=== PATIENT | female | born 1960 | race Caucasian/White ===

== ENCOUNTER 2017-06-26 11:57 | Emergency (ER) | payer SELFPAY ==
[2017-06-26 14:44] LABS: #Basophils 0.1 thou/uL (0.0-0.2); #Eosinphils 0.1 thou/uL (0.0-0.7); #Lymphocytes 3.7 thou/uL (1.20-3.40); #Monocytes 0.6 thou/uL (0.11-0.59); %Basophils 0.6 % (0.0-1.0); %Eosinophils 1.2 % (0.0-10.0); %Monocytes 6.5 % (0.0-10.0); %Neutrophils 52.8 % (42.0-75.0); Hemoglobin 17.5 g/dL (12.0-16.0); Mean Corpuscular HGB CONC 33.1 g/dL (32.0-36.0); Mean Corpuscular Hemoglobin 32.2 pg (27.0-31.0); Mean Corpuscular Volume 97.5 fl (81.0-99.0); Mean Platelet Volume 6.7 fL (7.4-10.4); Platelet Count 285 thou/uL (130-400); RBC Distribution Width 11.9 % (11.5-14.5); Red Blood Cell (RBC) Count 5.43 mill/uL (4.20-5.40); White Blood Cell (WBC) Count 9.4 thou/uL (4.8-10.8)
[2017-06-26 14:58] LABS: Anion Gap 12 mmol/L (10-20); BUN (Urea Nitrogen) 8 mg/dL (9.8-20.1); Calc. Creatinine Clearance 0 mL/min (70-130); Calcium 10.1 mg/dL (7.8-10.44); Carbon Dioxide 26 mmol/L (22-29); Chloride 103 mmol/L (98-107); Estimated GFR-MDRD 80; Glucose 134 mg/dL (70-105); Lipase 25 U/L (8-78); Potassium 4.2 mmol/L (3.5-5.1); Sodium 137 mmol/L (136-145)
[2017-06-26 15:43] LABS: Bilirubin Negative (Negative); Blood, Urine Negative (Negative); Clarity CLOUDY (Clear); Glucose, Urine (Dipstick) Negative (Negative); Leukocyte Moderate (Negative); Nitrite Positive (Negative); Protein, Urine (Dipstick) Negative (Neg-Trace); Specific Gravity, Urine 1.014 (1.002-1.036); Urobilinogen 0.2 mg/dL (0.2-1.0); pH, Urine 6.5 (5.0-9.0)
[2017-06-26 15:45] LABS: Bacteria/HPF 4+ HPF (None Seen); Pathc Cast-AUWi Flag 2.03 (0-2.49); WBC/HPF 21-50 HPF (0-3)
[2017-06-26 15:50] LABS: Hyaline Casts/LPF 0-3 HYALINE CAST LPF (0-3 Hyaline); RBC/HPF 0-3 HPF (0-3); Yeast-All Forms None Seen HPF (None Seen)
== END 2017-06-26 15:46 | disposition home or self-care (01) ==
LOC: ERS 11:57
DX: M54.40 Lumbago with sciatica, unspecified side (principal); I10 Essential (primary) hypertension; E78.00 Pure hypercholesterolemia, unspecified; F17.210 Nicotine dependence, cigarettes, uncomplicated; Z79.899 Other long term (current) drug therapy
CPT/HCPCS: 36415; 80048; 81003; 81015; 83690; 85025; 94760

== ENCOUNTER 2019-07-30 20:00 | Inpatient (IN) | payer OTHER, SELFPAY ==
--- NOTE | 2019-07-30 20:55 | CT ---
CT Brain WO Con: 07/30/2019 12:00 AM CLINICAL HISTORY: Altered mental status. IMAGING TECHNIQUE: Multiple CT images were obtained of the brain without IV contrast. COMPARISON: None. FINDINGS: Brain: There is a remote left MCA distribution infarct. There is encephalomalacia involving portions of the left frontal lobe, left insular cortex, left parietal lobe and left temporal lobe. No acute infarct or hemorrhage is evident. Ventricles: There is ex vacuo dilatation of the left lateral ventricle. No midline shift. Skull: Intact. Visualized Paranasal sinuses: Clear. Mastoid air cells:Clear. Extracranial soft tissues:Normal. IMPRESSION: No acute intracranial abnormality. Remote left MCA distribution infarct.
--- NOTE | 2019-07-30 21:24 | RAD ---
Chest AP view INDICATION: Lethargy and altered mental status COMPARISON: Chest 2 views from prior radiology associates dated March 07, 2016 FINDINGS: Lungs: There is stable mild scarring in the left upper lobe. No confluent airspace opacity is eviden t. Cardiac silhouette: The cardiomediastinal silhouette appears within normal limits. Pulmonary vasculature: Normal Pleural spaces: No pleural effusion or pneumothorax is demonstrated. Upper abdomen: No abnormality seen. Osseous structures: No acute osseous abnormality. Additional findings: None. IMPRESSION: No acute cardiopulmonary abnormality.
[2019-07-30 21:42] LABS: Hemoglobin 14.1 g/dL (12.0-16.0); Mean Corpuscular Hemoglobin 31.5 pg (27.0-31.0); Mean Corpuscular Volume 98.6 fL (78.0-98.0); RBC Distribution Width 11.5 % (11.5-14.5); Red Blood Cell (RBC) Count 4.47 mill/uL (4.20-5.40); White Blood Cell (WBC) Count 13.8 thou/uL (4.8-10.8)
[2019-07-30 22:07] LABS: #Basophils 0.1 thou/uL (0.0-0.2); #Eosinphils 0.3 thou/uL (0.0-0.7); #Lymphocytes 3.2 thou/uL (1.20-3.40); #Monocytes 1.4 thou/uL (0.11-0.59); #Neutrophils 8.8 thou/uL (1.40-6.50); %Basophils 0.9 % (0.0-1.0); %Eosinophils 2.5 % (0.0-10.0); %Lymphocytes 23.1 % (21.0-51.0); %Neutrophils 63.6 % (42.0-75.0); Mean Platelet Volume 8.7 fL (7.4-10.4); Platelet Count 76 thou/uL (130-400); Platelet Morphology Comment Appears Adequate
[2019-07-30 22:13] LABS: ALT (SGPT) 59 U/L (8-55); AST (SGOT) 35 U/L (5-34); Albumin 3.6 g/dL (3.5-5.0); Alkaline Phosphatase 134 U/L (40-110); Anion Gap 18 mmol/L (10-20); BUN (Urea Nitrogen) 15 mg/dL (9.8-20.1); Bilirubin, Total 0.3 mg/dL (0.2-1.2); Calc. Creatinine Clearance 0 mL/min (70-130); Calcium 10.4 mg/dL (7.8-10.44); Carbon Dioxide 19 mmol/L (22-29); Chloride 103 mmol/L (98-107); Estimated GFR-MDRD 64; Globulin 3.1 g/dL (2.4-3.5); Glucose 205 mg/dL (70-105); Potassium 5.2 mmol/L (3.5-5.1); Protein, Total 6.7 g/dL (6.0-8.3); Sodium 135 mmol/L (136-145)
[2019-07-30] MEDS ORDERED: Sodium Chloride 0.9% 100 ML ONE (22:26)
[2019-07-30] MEDS ORDERED: Cefepime 2 GM VIAL ONE (22:26)
[2019-07-30] MEDS ORDERED: Vancomycin HCl 2.5 GM in Sodium Chloride 0.9% 500 ML IVPB SCH (22:30)
[2019-07-30 22:51] LABS: Bilirubin Negative (Negative); Blood, Urine Negative (Negative); Clarity Clear (Clear); Glucose, Urine (Dipstick) Normal (Negative); Leukocyte Negative Leu/uL (Negative); Nitrite Negative (Negative); Protein, Urine (Dipstick) Negative (Neg-Trace); Urobilinogen Normal mg/dL (Less than 2)
[2019-07-31 00:32] LABS: HBCM Index 0.06 S/CO (0-0.79); HBSAg Index 0.13 S/CO (0-0.99); Hep A IgM AB Non-Reactive (NonReactive); Hep A IgM S/CO 0.09 S/CO (0-0.79); Hep B Surf Ag Non-Reactive S/CO (NonReactive); Hep C IgG Ab Non-Reactive (NonReactive); Hep C Index 0.11 S/CO (0-0.79); Hepatitis B Core IgM Abs Non-Reactive (NonReactive)
[2019-07-31] MEDS ORDERED: Acetaminophen 325 MG TAB PO PRN (00:54)
[2019-07-31] MEDS ORDERED: Ondansetron PF 4 MG/2 ML Vial IVP PRN (00:54)
[2019-07-31] MEDS ORDERED: Morphine 2 MG/ML SYRINGE SLOW IVP PRN (00:54)
[2019-07-31] MEDS ORDERED: Labetalol HCl 100 MG/20 ML VIAL SLOW IVP PRN ×2 (00:54→06:51)
[2019-07-31] MEDS ORDERED: Promethazine HCl 12.5 MG in Sodium Chloride 0.9% 50 ML IVPB PRN (00:54)
[2019-07-31] MEDS ORDERED: cloNIDine 0.1 MG TAB PO PRN (00:54)
[2019-07-31] MEDS ORDERED: Bisacodyl 5 MG TAB PO PRN (00:55)
[2019-07-31] MEDS ORDERED: Senokot S 8.6-50 MG TAB PO PRN (00:55)
[2019-07-31] MEDS ORDERED: Bisacodyl 10 MG SUPP PR PRN (00:55)
--- NOTE | 2019-07-31 00:58 | PDOC.HHP ---
Hospitalist HPI - History of Present Illness Weakness R sided, altered mental status History of Present Illness: Patient is a 58 year old female with PMH stroke, copd, DM, HTN, alcohol abuse, cholecystectomy, hysterectomy, bladder suspension who presents to hospital for altered mental status and worsening of chronic R sided weakness. She was with daughter and became pale and diaphoretic, unresponsive/distant, patient given juice and improved when EMS arrived. BG was 223. Daughter reported speech slower than normal, confused and lethargic. Her now-chronic R sided weakness is worse than baseline as well per daughter in ED. GCS 12, opens eye to speech, confused/disoriented, localizes pain. Patient has history of stroke on 03/06/2019 w/ right sided weakness, at that time CT scan revealed L MCA occlusion, acute infarct, midline shift of 2mm and hemorrhagic transformation of basal ganglia. She had persisting dense R hemiplegia and aphasia, and went to rehab in [facility]. she had PEG placed for swallow deficits. She was treated for K pneumo UTI w/ rocephin. Hospitalist ROS - Review of Systems ROS unobtainable: due to mental status Hospitalist History - Past Medical History Other Medical History: stroke, copd, DM, HTN, alcohol abuse, cholecystectomy, hysterectomy, bladder suspension - Past Surgical History Other Surgical History: bladder suspension - Family History Family History: reports: no pertinent history - Social History Other Social History: reported alcohol use in past. - Exam General - other findings: altered mental status, aphasia Eye: PERRL, anicteric sclera ENT: normocephalic atraumatic, no oropharyngeal lesions, moist mucosa ENT - other findings: aphasia Neck: supple, symmetric, no JVD, no thyromegaly, no lymphadenopathy, no carotid bruit Heart: RRR, no murmur, no gallops, no rubs, normal peripheral pulses Respiratory: CTAB, no wheezes, no rales, no ronchi, normal chest expansion, no tachypnea, normal percussion Gastrointestinal: soft, non-tender, non-distended, normal bowel sounds, no palpable masses, no hepatomegaly, no splenomegaly, no bruit Extremities: no cyanosis, no clubbing, no edema Skin: normal turgor, no lesions, no rashes Neurological - other findings: acute on chronic R sided weakness and numbness Musculoskeletal: generalized weakness Psychiatric - other findings: altered mental status Hospitalist Results - Labs Result Diagrams: 07/31/19 04:51 07/31/19 04:51 Lab results: WBC 13.8 thou/uL (4.8-10.8) H 07/30/19 21:29 Hgb 14.1 g/dL (12.0-16.0) 07/30/19 21:29 Hct 44.0 % (36.0-47.0) 07/30/19 21:29 MCV 98.6 fL (78.0-98.0) H 07/30/19 21:29 Plt Count 76 thou/uL (130-400) L 07/30/19 21:29 Neutrophils % 63.6 % (42.0-75.0) 07/30/19 21: Sodium 135 mmol/L (136-145) L 07/30/19 21:28 Potassium 5.2 mmol/L (3.5-5.1) H 07/30/19 21:28 Chloride 103 mmol/L (98-107) 07/30/19 21:28 Carbon Dioxide 19 mmol/L (22-29) L 07/30/19 21:28 BUN 15 mg/dL (9.8-20.1) 07/30/19 21:28 Creatinine 0.90 mg/dL (0.6-1.1) 07/30/19 21: Glucose 205 mg/dL (70-105) H 07/30/19 21:28 Lactic Acid 2.0 mmol/L (0.5-2.2) 07/31/19 00:27 Calcium 10.4 mg/dL (7.8-10.44) 07/30/19 21:28 Total Bilirubin 0.3 mg/dL (0.2-1.2) 07/30/19 21:28 AST 35 U/L (5-34) H 07/30/19 21:28 ALT 59 U/L (8-55) H 07/30/19 21:28 Alkaline Phosphatase 134 U/L (40-110) H 07/30/19 21:28 Ammonia 29 umol/L (18-72) 07/30/19 23:37 Troponin I 0.012 ng/mL (< 0.028) 07/30/19 21:28 B-Natriuretic Peptide Less than 10.0 pg/mL (0-100) 07/30/19 21:29 Serum Total Protein 6.7 g/dL (6.0-8.3) 07/30/19 21:28 Albumin 3.6 g/dL (3.5-5.0) 07/30/19 21:28 Urine Ketones Negative mg/dL (Negative) 07/30/19 22:32 Urine Blood Negative (Negative) 07/30/19 22:32 Urine Nitrite Negative (Negative) 07/30/19 22:32 Ur Leukocyte Esterase Negative Rhett/uL (Negative) 07/30/19 22:32 Additional comment: VITAL SIGNS Nivia July 30, 2019 23:30 FRANCESCO Hollins, Jake BP: 100/67 Pulse: 85 Resp: 18 Temp: 97.8 (Oral) Pain: utr O2 sat: 96 on (Room Air) Time: 07/30/2019 23:30. IMAGING PRELIMINARY HEAD No acute intracranial abnormality. Remote left MCA distribution infarct. CHEST There is stable mild scarring in the left upper lobe. No confluent airspace opacity is eviden t. Cardiac silhouette: The cardiomediastinal silhouette appears within normal limits. Pulmonary vasculature: Normal Pleural spaces: No pleural effusion or pneumothorax is demonstrated. Upper abdomen: No abnormality seen. Osseous structures: No acute osseous abnormality. Additional findings: None. IMPRESSION: No acute cardiopulmonary abnormality. PACKAGING LINE ATTENDANT Preliminary review of x-rays by Radiologist Preliminary review of CT scans by Radiologist. - EKG Interpretation EKG: left anterior fascicular block [place] normal Clinical impression: Normal EKG CO interval 148 ms QRS duration 90 ms QT/QTc 404/445 ms. reviewed and confirmed ed report personally Hospitalist H&P A/P - Plan Plan: Patient is a 58 year old female with PMH stroke, copd, DM, HTN, alcohol abuse, cholecystectomy, hysterectomy, bladder suspension who presents to hospital for altered mental status and worsening of chronic R sided weakness. # sepsis - with leukocytosis and altered mental status and worsening of stroke symptoms, however CXR and UA without acute findings, no obvious source of sepsis. - given elevated LFTs, order ct abdomen w iv contrast and hepatitis panel and start empiric zosyn and vancomycin - follow cultures and CT results - she was given 30cc/kg bolus in ED. # hyperkalemia - mild, trend BMP # history of CVA - Patient has history of stroke on 03/06/2019 w/ right sided weakness, at that time CT scan revealed L MCA occlusion, acute infarct, midline shift of 2mm and hemorrhagic transformation of basal ganglia. She had persisting dense R hemiplegia and aphasia, and went to rehab in [facility]. she had PEG placed for swallow deficits. She was treated for K pneumo UTI w/ rocephin. # DM w/ hyperglycemia # acute on chronic R sided weakness and aphasia- likely exacerbation of old stroke symptoms with new sepsis, however unable to completely rule out stroke so will use order set and get MRI, CTA etc and consult stroke team, resume home meds for risk prevention # history of alcohol abuse - noted, no withdrawal symptoms in rehab paperwork # HTN - permissive HTN for now # dvt ppx # gi ppx MPOHarry is daughter, paperwork is in chart brought from home.
[2019-07-31] MEDS: Sodium Chloride 0.9% 1,000 ML IV SCH (02:11)
[2019-07-31] MEDS: Piperacillin/Tazobactam 3.375 GM in Sodium Chloride 0.9% 100 ML IVPB SCH ×4 (02:11→20:41)
[2019-07-31 05:13] LABS: #Basophils 0.1 thou/uL (0.0-0.2); #Eosinphils 0.3 thou/uL (0.0-0.7); #Lymphocytes 4.1 thou/uL (1.20-3.40); #Neutrophils 4.7 thou/uL (1.40-6.50); %Basophils 0.7 % (0.0-1.0); %Eosinophils 2.8 % (0.0-10.0); %Lymphocytes 40.6 % (21.0-51.0); %Monocytes 9.8 % (0.0-10.0); %Neutrophils 46.1 % (42.0-75.0); Hemoglobin 13.2 g/dL (12.0-16.0); Mean Corpuscular HGB CONC 31.1 g/dL (32.0-36.0); Mean Corpuscular Hemoglobin 30.9 pg (27.0-31.0); Mean Corpuscular Volume 99.5 fL (78.0-98.0); Mean Platelet Volume 7.5 fL (7.4-10.4); Platelet Count 246 thou/uL (130-400); RBC Distribution Width 11.6 % (11.5-14.5); Red Blood Cell (RBC) Count 4.26 mill/uL (4.20-5.40); White Blood Cell (WBC) Count 10.2 thou/uL (4.8-10.8)
[2019-07-31 05:23] LABS: Anion Gap 13 mmol/L (10-20); BUN (Urea Nitrogen) 14 mg/dL (9.8-20.1); Calc. Creatinine Clearance 138 mL/min (70-130); Calcium 9.4 mg/dL (7.8-10.44); Carbon Dioxide 22 mmol/L (22-29); Chloride 109 mmol/L (98-107); Estimated GFR-MDRD Greater than 90; Glucose 109 mg/dL (70-105); Magnesium 1.9 mg/dL (1.6-2.6); Potassium 3.9 mmol/L (3.5-5.1); Sodium 140 mmol/L (136-145)
[2019-07-31] MEDS ORDERED: Vancomycin 1 GM in Premix Bag 1 BAG IVPB ONE (06:50)
[2019-07-31] MEDS ORDERED: hydrALAZINE 20 MG/ML VIAL SLOW IVP PRN (06:51)
[2019-07-31] MEDS ORDERED: Gabapentin 100 MG CAP PO SCH ×2 (07:00→21:00)
--- NOTE | 2019-07-31 08:04 | CT ---
PRELIMINARY REPORT/[facility]/EMERGENCY AFTER HOURS PROCEDURE PROCEDURE: CT Scan Abdomen and Pelvis with IV Contrast Material. HISTORY: Altered mental status and colitis. TECHNIQUE: Axial images were performed with multiplanar reconstructions. The patient was given iodina eyad contrast intravenously. The patient was not given oral contrast material. COMPARISONS: None . FINDINGS: Linear scar versus discoid atelectasis at the lung bases. Liver, spleen, adrenals, pancreas show no abnormality. Kidneys show normal enhancement with no obstruction. There has been previous c holecystectomy with normal sized biliary tree. No abdominal ascites or pneumoperitoneum. Mild atherosclerosis aorta. 3 cm omental periumbilical hernia. No lymphadenopathy. Moderate feces in the rectum with prominent mucosa in perirectal stranding consistent with colitis and constipation. M ild colonic diverticulosis. No bowel obstruction. Appendix is not visualized. Pelvis shows previous hysterectomy and no masses or free fluid with normal urinary bladder. No acute bony abnormality . IMPRESSION: Proctitis and constipation. Mild colonic diverticulosis. Small omental periumbilical fallon ia. No other significant abnormality identified. ELECTRONICALLY SIGNED BY: Humble Tubbs MD July 31, 2019 2:44:29 AM CDT FINAL REPORT CT ABDOMEN AND PELVIS WITH IV CONTRAST: I agree with the preliminary report given by Dr. Humble Tubbs of [facility]. POS: ANNE
[2019-07-31] MEDS: Enoxaparin Sodium 40 MG/0.4 ML SYRINGE SC SCH (09:00)
[2019-07-31] MEDS ORDERED: Non-Formulary Item 1 EACH (Lisinopril [Lisinopril] 40 MG) PO SCH (09:00)
[2019-07-31] MEDS ORDERED: TIOTROPIUM BROMIDE IH SCH (09:00)
[2019-07-31] MEDS: Vancomycin HCl 1.75 GM in Sodium Chloride 0.9% 500 ML IVPB SCH ×2 (09:00→22:28)
[2019-07-31] MEDS ORDERED: Iopamidol 370 76% 100 ML VIAL ONE (10:01)
[2019-07-31 10:44] LABS: SARS-CoV-2 MS2 Positive; SARS-CoV-2 N Gene Negative; SARS-CoV-2 S Gene Negative; SARS-CoV-2 orf1ab Negative
[2019-07-31] MEDS: Famotidine 20 MG TAB PO SCH ×2 (12:01→20:43)
[2019-07-31] MEDS: Lisinopril 20 MG TAB PO SCH (12:01)
[2019-07-31] MEDS: Gabapentin 100 MG CAP PO SCH ×3 (12:01→20:42)
[2019-07-31] MEDS: glipiZIDE 5 MG TAB PO SCH (12:02)
[2019-07-31] MEDS: Aspirin 81 mg Enteric Coated Tablet PO SCH (12:02)
[2019-07-31] MEDS: Polyethylene Glycol 3350 17 GM Packet PO SCH (12:03)
--- NOTE | 2019-07-31 15:17 | ULT ---
CAROTID DUPLEX ULTRASOUND: INDICATION: History of stroke workup. COMPARISON: Prior CT of the brain dated 07/30/2019. FINDINGS: There is complete occlusion of the proximal and mid left ICA with some very minimal antegrade flow se en within the distal left ICA. There is antegrade flow within the left ECA. The peak systolic velocity within the right ICA was 94.9 cm/s and the right CCA 100.3 cm/s with a rig ht IC/CC ratio 0.95. There is antegrade flow within both vertebral arteries. IMPRESSION: 1. Complete occlusion of the proximal and mid left internal carotid artery with minimal antegrade fl ow seen at the level of the distal left internal carotid artery. 2. No hemodynamically significant right internal carotid artery. 3. Antegrade flow within both vertebral arteries. POS: BH
--- NOTE | 2019-07-31 15:36 | PDOC.HOSPP ---
- Subjective Encounter Date: 07/31/19 Encounter Time: 15:35 Subjective: Ms. Granados was seen today in follow-up for altered mental status. She remains obtunded. She will only mumble a few words. She is inconsistent with following commands. - Objective Vital Signs & Weight: Vital Signs (12 hours) Temp Pulse Resp BP BP BP Pulse Ox 07/31/19 12:01 138/80 07/31/19 11:48 98.4 F 97 16 138/80 138/80 95 07/31/19 08:05 96.9 F L 83 12 138/71 07/31/19 04:06 96.9 F L 80 16 121/65 95 Weight Admit Weight 197 lb 6.4 oz Weight 197 lb 6.4 oz I&O: 07/30/19 07/31/19 08/01/19 06:59 06:59 06:59 Intake Total 865 360 Output Total 1100 Balance 865 -740 Result Diagrams: 07/31/19 04:51 07/31/19 04:51 Additional Labs: Accuchecks 07/31/19 07/31/19 07/30/19 11:52 05:56 20:20 POC Glucose 116 H 135 H 219 H Hospitalist ROS - Medication Medications: Active Medications Generic Name Dose Route Start Last Admin Trade Name Freq PRN Reason Stop Dose Admin Aspirin 81 mg 07/31/19 09:00 07/31/19 12:02 Ecotrin PO 81 mg DAILY JEANINE Administration Enoxaparin Sodium 40 mg 07/31/19 09:00 07/31/19 09:00 Lovenox SC 40 mg 0900 JEANINE Administration Famotidine 20 mg 07/31/19 09:00 07/31/19 12:01 Pepcid PO 20 mg BID JEANINE Administration Gabapentin 100 mg 07/31/19 09:00 07/31/19 12:01 Neurontin PO 100 mg 0900,1500 JEANINE Administration Glipizide 5 mg 07/31/19 09:00 07/31/19 12:02 Glucotrol PO Not Given DAILY JEANINE Piperacillin Sod/Tazobactam 100 mls @ 200 mls/hr 07/31/19 02:00 07/31/19 09: 00 Sod 3.375 gm/ Sodium Chloride IVPB 100 mls 0200,0800,1400,2000 JEANINE Administration Sodium Chloride 1,000 mls @ 50 mls/hr 07/31/19 01:00 07/31/19 02:11 Normal Saline 0.9% IV 1,000 mls .Q20H JEANINE Administration Vancomycin HCl 1.75 gm/ Sodium 500 mls @ 250 mls/hr 07/31/19 09:00 07/31/19 09:00 Chloride IVPB 500 mls Q12HR JEANINE Administration Lisinopril 40 mg 07/31/19 09:00 07/31/19 12:01 Zestril PO 40 mg DAILY JEANINE Administration Polyethylene Glycol 17 gm 07/31/19 09:00 07/31/19 12:03 Miralax PO Not Given DAILY JEANINE - Exam Eye: PERRL, anicteric sclera Heart: RRR, no murmur, no gallops, no rubs, normal peripheral pulses Respiratory: CTAB, no wheezes, no rales, no ronchi, normal chest expansion, no tachypnea, normal percussion Gastrointestinal: soft, non-tender, non-distended, normal bowel sounds, no palpable masses, no hepatomegaly Extremities: no cyanosis, no edema Skin: normal turgor Hosp A/P (1) Encephalopathy acute Code(s): G93.40 - ENCEPHALOPATHY, UNSPECIFIED Status: Acute (2) TIA (transient ischemic attack) Code(s): G45.9 - TRANSIENT CEREBRAL ISCHEMIC ATTACK, UNSPECIFIED Status: Acute (3) Hypertension Code(s): I10 - ESSENTIAL (PRIMARY) HYPERTENSION Status: Chronic (4) Diabetes mellitus type 2 in nonobese Code(s): E11.9 - TYPE 2 DIABETES MELLITUS WITHOUT COMPLICATIONS Status: Chronic - Plan * Encephalopathy- ? etiology- possibly cerebral vascular disease * Await MRI results * HTN- blood pressure * DM- blood glucose stable * Echo results noted * Currently there are no signs of infection- there is no fever, and WBC count is normal- CT scan of the abdomen is essentially negative, as well as the CXR, and UA- would continue antibiotics overnight, and consider to discontinue if no evidence of infection * Will contul Neurology for continued confusion
--- NOTE | 2019-07-31 16:53 | CON ---
DATE OF CONSULTATION: 07/31/2019 NEUROLOGY CONSULTATION REASON FOR CONSULTATION: Altered mental status, right-sided weakness. HISTORY OF PRESENT ILLNESS: Ms. Granados is a 58-year-old female with medical history significant for stroke, COPD, diabetes mellitus, hypertension, cholecystectomy, status post hysterectomy, who presented with altered mental status and worsening of chronic right-sided weakness. The history is taken from the review of the records. Per daughter, she became pale, diaphoretic and confused. When the EMS arrived, her blood sugar was 223. The daughter also noticed worsening of the right-sided weakness so she was brought to [facility] for further evaluation. She had a stroke on 03/06/2019 with right-sided weakness. CT scan showed left MCA occlusion and acute infarct with hemorrhagic transformation in the basal ganglia. She was discharged to rehabilitation facility with right hemiplegia. REVIEW OF SYSTEMS: Unable to obtain secondary to mental status. PAST MEDICAL HISTORY: Stroke, COPD, diabetes, hypertension, alcohol abuse, cholecystectomy, and hysterectomy. PAST SURGICAL HISTORY: Bladder suspension. FAMILY HISTORY: No pertinent family history. SOCIAL HISTORY: Alcohol abuse in the past. Vital Signs & Weight: Vital Signs (12 hours) Temp Pulse Resp BP BP BP Pulse Ox 07/31/19 12:01 138/80 07/31/19 11:48 98.4 F 97 16 138/80 138/80 95 07/31/19 08:05 96.9 F L 83 12 138/71 07/31/19 04:06 96.9 F L 80 16 121/65 95 Weight Admit Weight 197 lb 6.4 oz Weight 197 lb 6.4 oz I&O: 07/30/19 07/31/19 08/01/19 06:59 06:59 06:59 Intake Total 865 360 Output Total 1100 Balance 865 -740 07/31/19 04:51 Additional Labs: Accuchecks 07/31/19 07/31/19 07/30/19 11:52 05:56 20:20 POC Glucose 116 H 135 H 219 H Hospitalist ROS - Medication Medications: Active Medications Generic Name Dose Route Start Last Admin Trade Name Freq PRN Reason Stop Dose Admin Aspirin 81 mg 07/31/19 09:00 07/31/19 12:02 Ecotrin PO 81 mg DAILY JEANINE Administration Enoxaparin Sodium 40 mg 07/31/19 09:00 07/31/19 09:00 Lovenox SC 40 mg 0900 JEANINE Administration Famotidine 20 mg 07/31/19 09:00 07/31/19 12:01 Pepcid PO 20 mg BID JEANINE Administration Gabapentin 100 mg 07/31/19 09:00 07/31/19 12:01 Neurontin PO 100 mg 0900,1500 JEANINE Administration Glipizide 5 mg 07/31/19 09:00 07/31/19 12:02 Glucotrol PO Not Given DAILY JEANINE Piperacillin Sod/Tazobactam 100 mls @ 200 mls/hr 07/31/19 02:00 07/31/19 09: 00 Sod 3.375 gm/ Sodium Chloride IVPB 100 mls 0200,0800,1400,2000 JEANINE Administration Sodium Chloride 1,000 mls @ 50 mls/hr 07/31/19 01:00 07/31/19 02:11 Normal Saline 0.9% IV 1,000 mls .Q20H JEANINE Administration Vancomycin HCl 1.75 gm/ Sodium 500 mls @ 250 mls/hr 07/31/19 09:00 07/31/19 09:00 Chloride IVPB 500 mls Q12HR JEANINE Administration Lisinopril 40 mg 07/31/19 09:00 07/31/19 12:01 Zestril PO 40 mg DAILY JEANINE Administration Polyethylene Glycol 17 gm 07/31/19 09:00 07/31/19 12:03 Miralax PO Not Given DAILY JEANINE - Exam Eye: PERRL, anicteric sclera Heart: RRR, no murmur, no gallops, no rubs, normal peripheral pulses Respiratory: CTAB, no wheezes, no rales, no ronchi, normal chest expansion, no tachypnea, normal percussion Gastrointestinal: soft, non-tender, non-distended, normal bowel sounds, no palpable masses, no hepatomegaly Extremities: no cyanosis, no edema Skin: normal turgor NEUROLOGIC: Mental status; Patient is alert, awake and follows commands. Knows her name. Receptive aphasia. Cranial nerves; pupils equal and reactive to light, right facial droop and no roving eye movements. Extraocular movements are intact. Motor; muscle, tone, and bulk are normal, right hemiplegia. Spontaneous movement on the left. Cerebellar; unable to perform on the right secondary to weakness. Sensory; withdraws to nailbed pressure, left greater than right. Gait could not be tested due to the patient's safety reason. ASSESSMENT AND PLAN: Ms. Granados is a 58-year-old with history significant for prior cerebrovascular accident, diabetes, hypertension, presented with worsening of weakness and waxing and waning mental status. Consider MRI to rule out acute intracranial pathology or a new stroke. Neuro checks every 4 hours. Continue home medications and medical management per primary team. We will continue to follow. Thank you for the consult. Job ID: [id number] MTDD
[2019-07-31] MEDS: Ipratropium Bromide 2.5 ml Neb NEB SCH ×3 (18:30→23:14)
[2019-07-31] MEDS: HYDROcodone/Acetaminophen 5/325 mg Tablet PO PRN (20:42)
[2019-07-31] MEDS: Atorvastatin Calcium 40 MG TAB PO SCH (20:43)
[2019-07-31] MEDS ORDERED: Insulin Regular 300 UNITS/3 ML VIAL SC PRN (21:51)
[2019-07-31] MEDS ORDERED: Dextrose 50% Abboject 50 ML SYRINGE SLOW IVP PRN (21:51)
[2019-07-31] MEDS ORDERED: Dextrose 5% in Water 1,000 ML IV PRN (21:51)
[2019-08-01] MEDS: Piperacillin/Tazobactam 3.375 GM in Sodium Chloride 0.9% 100 ML IVPB SCH ×4 (02:53→20:24)
[2019-08-01 05:17] LABS: #Basophils 0.1 thou/uL (0.0-0.2); #Eosinphils 0.5 thou/uL (0.0-0.7); #Lymphocytes 3.2 thou/uL (1.20-3.40); #Monocytes 0.8 thou/uL (0.11-0.59); #Neutrophils 3.2 thou/uL (1.40-6.50); %Basophils 0.7 % (0.0-1.0); %Eosinophils 6.2 % (0.0-10.0); %Lymphocytes 41.1 % (21.0-51.0); %Monocytes 10.7 % (0.0-10.0); %Neutrophils 41.2 % (42.0-75.0); Hemoglobin 12.9 g/dL (12.0-16.0); Mean Corpuscular HGB CONC 31.9 g/dL (32.0-36.0); Mean Corpuscular Hemoglobin 31.2 pg (27.0-31.0); Mean Corpuscular Volume 97.7 fL (78.0-98.0); Mean Platelet Volume 7.1 fL (7.4-10.4); Platelet Count 234 thou/uL (130-400); RBC Distribution Width 11.5 % (11.5-14.5); Red Blood Cell (RBC) Count 4.14 mill/uL (4.20-5.40); White Blood Cell (WBC) Count 7.7 thou/uL (4.8-10.8)
[2019-08-01 05:40] LABS: Anion Gap 13 mmol/L (10-20); BUN (Urea Nitrogen) 10 mg/dL (9.8-20.1); Calc. Creatinine Clearance 136 mL/min (70-130); Calcium 9.2 mg/dL (7.8-10.44); Carbon Dioxide 26 mmol/L (22-29); Cardiac Risk 3.9 (Less than 4.5); Chloride 106 mmol/L (98-107); Cholesterol 125 mg/dl (< 200 Desired); Estimated GFR-MDRD Greater than 90; Glucose 124 mg/dL (70-105); HDL Cholesterol 32 mg/dL (>60 Neg Risk); LDL Cholesterol, Calculated 69 mg/dL; Magnesium 1.8 mg/dL (1.6-2.6); Sodium 141 mmol/L (136-145); Triglycerides 118 mg/dL (Less than 150)
[2019-08-01] MEDS: Sodium Chloride 0.9% 1,000 ML IV SCH (06:48)
[2019-08-01] MEDS: Ipratropium Bromide 2.5 ml Neb NEB SCH ×4 (06:49→19:04)
[2019-08-01] MEDS: HYDROcodone/Acetaminophen 5/325 mg Tablet PO PRN ×2 (07:42→20:23)
[2019-08-01] MEDS: Lisinopril 20 MG TAB PO SCH (07:43)
[2019-08-01] MEDS: Famotidine 20 MG TAB PO SCH ×2 (07:43→20:23)
[2019-08-01] MEDS: Gabapentin 100 MG CAP PO SCH ×3 (07:44→20:24)
[2019-08-01] MEDS: Enoxaparin Sodium 40 MG/0.4 ML SYRINGE SC SCH (07:44)
[2019-08-01] MEDS: glipiZIDE 5 MG TAB PO SCH (07:44)
[2019-08-01] MEDS: Aspirin 81 mg Enteric Coated Tablet PO SCH (07:44)
[2019-08-01] MEDS: Polyethylene Glycol 3350 17 GM Packet PO SCH (07:45)
[2019-08-01] MEDS: Vancomycin HCl 1.75 GM in Sodium Chloride 0.9% 500 ML IVPB SCH ×2 (07:46→21:32)
[2019-08-01] MEDS: Insulin Regular 300 UNITS/3 ML VIAL SC PRN (11:32)
--- NOTE | 2019-08-01 12:57 | MRI ---
MRI BRAIN NONCONTRAST: DATE: 08/01/2019 HISTORY: 58-year-old female with right upper extremity and right lower extremity weakness. Rule out stroke. COMPARISON: No prior brain MRI FINDINGS: There is a large, confluent region of encephalomalacia and gliosis involving the left lateral suprasy lvian frontal lobe, small portion of the superior aspect of the left temporal operculum, and much of the left basal ganglia and left caudate nucleus, extending superiorly into the left middle frontal gyrus, with involvement of inferior lateral portion of left motor cortex. There is large hemosiderin stain associated with this, especially in the left basal ganglia, representing prior hemo rrhagic transformation. This large old infarction of the left MCA territory also has irregular, gyriform and patchy regions of apparently restricted diffusion. It is possible that these represent m oderate size components of new, acute infarctions superimposed on the old infarction. There is hyperintense T2 signal in the left cerebral peduncle and left side of martin, extending into a small anterior portion of the left medulla, representing wallerian degeneration. There is alteration of the flow void of the left carotid siphon. No mass effect, midline shift, obstructive hydrocephalus, or extra-axial fluid collection. IMPRESSION: 1) large old infarction of left middle cerebral artery territory, with prior hemorrhagic transformati on. 2) associated wallerian degeneration of the left brainstem. 3) chronically occluded left internal carotid artery. 4) it is uncertain whether there are superimposed acute infarction components around and in between t he infarcted left brain tissue. This question could be answered with a follow-up MRI of the brain (preferably with and without contra st unless contraindicated) in 1 - 3 months.
--- NOTE | 2019-08-01 14:59 | PDOC.HOSPP ---
- Objective Vital Signs & Weight: Vital Signs (12 hours) Temp Pulse Resp BP BP Pulse Ox 08/01/19 12:50 81 16 94 L 08/01/19 11:22 97.8 F 69 16 135/64 95 08/01/19 07:50 94 L 08/01/19 07:24 98 F 80 16 143/83 H 94 L 08/01/19 06:49 74 16 95 08/01/19 03:32 98.3 F 73 16 122/65 92 L Weight Admit Weight 197 lb 6.4 oz Weight 191 lb 12.8 oz I&O: 07/31/19 08/01/19 08/02/19 06:59 06:59 06:59 Intake Total 865 6639 Output Total 2950 Balance 865 -8234 Result Diagrams: 08/01/19 05:05 08/01/19 05:05 Additional Labs: Accuchecks 08/01/19 08/01/19 07/31/19 10:40 05:25 22:31 POC Glucose 201 H 189 H 192 H 07/31/19 07/31/19 20:23 16:59 POC Glucose 220 H 152 H Hospitalist ROS - Medication Medications: Active Medications Generic Name Dose Route Start Last Admin Trade Name Freq PRN Reason Stop Dose Admin Hydrocodone Bitart/Acetaminophen 1 tab 07/31/19 00:54 08/01/19 07:42 [place] 5/325 PO 1 tab Q4H PRN Administration Moderate Pain (4-6) Aspirin 81 mg 07/31/19 09:00 08/01/19 07:44 Ecotrin PO 81 mg DAILY JEANINE Administration Atorvastatin Calcium 40 mg 07/31/19 21:00 07/31/19 20:43 Lipitor PO 40 mg HS JEANINE Administration Enoxaparin Sodium 40 mg 07/31/19 09:00 08/01/19 07:44 Lovenox SC 40 mg 0900 JEANINE Administration Famotidine 20 mg 07/31/19 09:00 08/01/19 07:43 Pepcid PO 20 mg BID JEANINE Administration Gabapentin 100 mg 07/31/19 09:00 08/01/19 07:44 Neurontin PO 100 mg 0900,1500 JEANINE Administration Gabapentin 200 mg 07/31/19 21:00 07/31/19 20:42 Neurontin PO 200 mg HS JEANINE Administration Glipizide 5 mg 07/31/19 09:00 08/01/19 07:44 Glucotrol PO 5 mg DAILY JEANINE Administration Piperacillin Sod/Tazobactam 100 mls @ 200 mls/hr 07/31/19 02:00 08/01/19 07: 45 Sod 3.375 gm/ Sodium Chloride IVPB 100 mls 0200,0800,1400,2000 JEANINE Administration Sodium Chloride 1,000 mls @ 50 mls/hr 07/31/19 01:00 08/01/19 06:48 Normal Saline 0.9% IV 1,000 mls .Q20H JEANINE Administration Vancomycin HCl 1.75 gm/ Sodium 500 mls @ 250 mls/hr 07/31/19 09:00 08/01/19 07:46 Chloride IVPB 500 mls Q12HR JEANINE Administration Insulin Human Regular 0 units 07/31/19 06:51 08/01/19 11:32 Humulin R SC 4 units .MODERATE SLIDING SC PRN Administration Moderate Correctional Scale Ipratropium [place] 2.5 ml 07/31/19 13:00 08/01/19 12:50 Atrovent NEB 2.5 ml [id number] JEANINE Administration Lisinopril 40 mg 07/31/19 09:00 08/01/19 07:43 Zestril PO 40 mg DAILY JEANINE Administration Polyethylene Glycol 17 gm 07/31/19 09:00 08/01/19 07:45 Miralax PO 17 gm DAILY JEANINE Administration Hosp A/P - Plan (1) Encephalopathy acute Code(s): G93.40 - ENCEPHALOPATHY, UNSPECIFIED Status: Acute (2) TIA (transient ischemic attack) Code(s): G45.9 - TRANSIENT CEREBRAL ISCHEMIC ATTACK, UNSPECIFIED Status: Acute (3) Hypertension Code(s): I10 - ESSENTIAL (PRIMARY) HYPERTENSION Status: Chronic (4) Diabetes mellitus type 2 in nonobese Code(s): E11.9 - TYPE 2 DIABETES MELLITUS WITHOUT COMPLICATIONS Status: Chronic - Plan * Encephalopathy- ? etiology- possibly cerebral vascular disease * Await MRI results--------------> ecephalomalacia, gliosis, left MCA stroke; chronically occluded left ICA. * HTN- blood pressure * DM- blood glucose stable * Echo results noted * Currently there are no signs of infection- there is no fever, and WBC count is normal- CT scan of the abdomen is essentially negative, as well as the CXR, and UA- would continue antibiotics overnight, and consider to discontinue if no evidence of infection * Will contul Neurology for continued confusion * * updated the dtr [phone] and she will come tomorrow to have direct conversation pt has labile mentation, work up negative - no infectious source -cristina d/t prior stroke and pt is not articulate per dtr since prior stroke -fw on tsh, b12, folate and vitamin D level she could have accelerated dementia with stroke of 02/2019 as it affected sig.. part of the brain.
--- NOTE | 2019-08-01 15:11 | EKG ---
Test Reason : Blood Pressure : / mmHG Vent. Rate : 073 BPM Atrial Rate : 073 BPM P-R Int : 148 ms QRS Dur : 090 ms QT Int : 404 ms P-R-T Axes : 067 -55 037 degrees QTc Int : 445 ms Normal sinus rhythm Left anterior fascicular block Abnormal ECG Confirmed by JOSEPH ESPARZA, LIDA Arriaza ([id number]), food editor ERICKA DAVIS ([id number]) on 08/01/2019 3:10:44 PM Referred By: Confirmed By:LIDA RUIZ MD
[2019-08-01 16:08] LABS: Vitamin D, 25 Hydroxy 33.7 ng/ml (> 30.0)
[2019-08-01 16:14] LABS: Thyroid Stimulating Hormone 2.6348 uIU/mL (0.35-4.94)
[2019-08-01] MEDS: Atorvastatin Calcium 40 MG TAB PO SCH (20:24)
[2019-08-01 20:32] LABS: Vancomycin, Trough 16.4 ug/mL
[2019-08-02] MEDS: Ipratropium Bromide 2.5 ml Neb NEB SCH ×4 (00:42→19:11)
[2019-08-02] MEDS: Piperacillin/Tazobactam 3.375 GM in Sodium Chloride 0.9% 100 ML IVPB SCH ×2 (02:23→07:28)
[2019-08-02 04:54] LABS: #Basophils 0.1 thou/uL (0.0-0.2); #Eosinphils 0.6 thou/uL (0.0-0.7); #Lymphocytes 3.1 thou/uL (1.20-3.40); %Basophils 0.8 % (0.0-1.0); %Eosinophils 7.7 % (0.0-10.0); %Lymphocytes 39.7 % (21.0-51.0); %Monocytes 12.4 % (0.0-10.0); %Neutrophils 39.4 % (42.0-75.0); Hemoglobin 12.2 g/dL (12.0-16.0); Mean Corpuscular Hemoglobin 31.1 pg (27.0-31.0); Mean Corpuscular Volume 97.2 fL (78.0-98.0); Mean Platelet Volume 7.3 fL (7.4-10.4); Platelet Count 238 thou/uL (130-400); RBC Distribution Width 11.4 % (11.5-14.5); Red Blood Cell (RBC) Count 3.93 mill/uL (4.20-5.40); White Blood Cell (WBC) Count 7.7 thou/uL (4.8-10.8)
[2019-08-02 05:13] LABS: Anion Gap 11 mmol/L (10-20); BUN (Urea Nitrogen) 7 mg/dL (9.8-20.1); Calc. Creatinine Clearance 127 mL/min (70-130); Calcium 9.1 mg/dL (7.8-10.44); Carbon Dioxide 27 mmol/L (22-29); Chloride 107 mmol/L (98-107); Estimated GFR-MDRD Greater than 90; Glucose 107 mg/dL (70-105); Sodium 141 mmol/L (136-145)
[2019-08-02] MEDS: Aspirin 81 mg Enteric Coated Tablet PO SCH (07:29)
[2019-08-02] MEDS: Lisinopril 20 MG TAB PO SCH (07:29)
[2019-08-02] MEDS: Polyethylene Glycol 3350 17 GM Packet PO SCH (07:29)
[2019-08-02] MEDS: Famotidine 20 MG TAB PO SCH ×2 (07:29→20:46)
[2019-08-02] MEDS: Gabapentin 100 MG CAP PO SCH ×3 (07:29→20:46)
[2019-08-02] MEDS: glipiZIDE 5 MG TAB PO SCH (07:29)
[2019-08-02] MEDS: Enoxaparin Sodium 40 MG/0.4 ML SYRINGE SC SCH (07:30)
[2019-08-02] MEDS: Vancomycin HCl 1.75 GM in Sodium Chloride 0.9% 500 ML IVPB SCH (08:53)
[2019-08-02] MEDS: Insulin Regular 300 UNITS/3 ML VIAL SC PRN (11:56)
[2019-08-02] MEDS: HYDROcodone/Acetaminophen 5/325 mg Tablet PO PRN ×2 (12:01→20:48)
[2019-08-02] MEDS: Sodium Chloride 0.9% 1,000 ML IV SCH (12:02)
--- NOTE | 2019-08-02 12:50 | PDOC.HOSPP ---
- Subjective Encounter Date: 08/02/19 Encounter Time: 11:10 Subjective: prt is more alert and having her lunch. missed talking to family today, as delay in coming back from ICU, left a detailed message to the dtr, whom i talk to her y'day. - Objective Vital Signs & Weight: Vital Signs (12 hours) Temp Pulse Resp BP BP Pulse Ox 08/02/19 12:44 77 16 91 L 08/02/19 11:00 98.9 F 81 18 167/79 H 93 L 08/02/19 07:18 97.1 F L 83 16 151/71 H 94 L 08/02/19 07:17 84 16 93 L 08/02/19 03:15 98.5 F 75 14 123/67 94 L Weight Admit Weight 197 lb 6.4 oz Weight 190 lb 9.6 oz I&O: 08/01/19 08/02/19 08/03/19 06:59 06:59 06:59 Intake Total 3599 2160 Output Total 6100 4750 Balance -8691 -2756 Result Diagrams: 08/02/19 04:27 08/02/19 04:27 Additional Labs: Accuchecks 08/02/19 08/01/19 08/01/19 11:06 20:18 15:55 POC Glucose 183 H 227 H 132 H Hospitalist ROS - Medication Medications: Active Medications Generic Name Dose Route Start Last Admin Trade Name Freq PRN Reason Stop Dose Admin Hydrocodone Bitart/Acetaminophen 1 tab 07/31/19 00:54 08/02/19 12:01 [place] 5/325 PO 1 tab Q4H PRN Administration Moderate Pain (4-6) Aspirin 81 mg 07/31/19 09:00 08/02/19 07:29 Ecotrin PO 81 mg DAILY JEANINE Administration Atorvastatin Calcium 40 mg 07/31/19 21:00 08/01/19 20:24 Lipitor PO 40 mg HS JEANINE Administration Enoxaparin Sodium 40 mg 07/31/19 09:00 08/02/19 07:30 Lovenox SC 40 mg 0900 JEANINE Administration Famotidine 20 mg 07/31/19 09:00 08/02/19 07:29 Pepcid PO 20 mg BID JEANINE Administration Gabapentin 100 mg 07/31/19 09:00 08/02/19 07:29 Neurontin PO 100 mg 0900,1500 JENAINE Administration Gabapentin 200 mg 07/31/19 21:00 08/01/19 20:24 Neurontin PO 200 mg HS JEANINE Administration Glipizide 5 mg 07/31/19 09:00 08/02/19 07:29 Glucotrol PO 5 mg DAILY JEANINE Administration Piperacillin Sod/Tazobactam 100 mls @ 200 mls/hr 07/31/19 02:00 08/02/19 07: 28 Sod 3.375 gm/ Sodium Chloride IVPB 100 mls 0200,0800,1400,2000 JEANINE Administration Sodium Chloride 1,000 mls @ 50 mls/hr 07/31/19 01:00 08/02/19 12:02 Normal Saline 0.9% IV 1,000 mls .Q20H JEANINE Administration Vancomycin HCl 1.75 gm/ Sodium 500 mls @ 250 mls/hr 07/31/19 09:00 08/02/19 08:53 Chloride IVPB 500 mls Q12HR JEANINE Administration Insulin Human Regular 0 units 07/31/19 06:51 08/02/19 11:56 Humulin R SC 2 units .MODERATE SLIDING SC PRN Administration Moderate Correctional Scale Insulin Human Regular 0 units 07/31/19 21:51 08/01/19 21:32 Humulin R SC 2 unit .BEDTIME SLIDING SC PRN Administration Bedtime Correctional Scale Ipratropium [place] 2.5 ml 07/31/19 13:00 08/02/19 12:44 Atrovent NEB 2.5 ml [id number] JEANINE Administration Lisinopril 40 mg 07/31/19 09:00 08/02/19 07:29 Zestril PO 40 mg DAILY JEANINE Administration Polyethylene Glycol 17 gm 07/31/19 09:00 08/02/19 07:29 Miralax PO 17 gm DAILY JEANINE Administration Sodium Chloride 10 ml 07/31/19 06:51 08/01/19 20:24 Flush - Normal Saline IVF 10 ml PRN PRN Administration Saline Flush - Exam General Appearance: NAD, awake alert General - other findings: haing lunch ENT: normocephalic atraumatic Neck: supple Heart: RRR Respiratory: CTAB, normal chest expansion Gastrointestinal: soft, non-distended, normal bowel sounds Neurological: no focal deficits Hosp A/P - Plan (1) Encephalopathy acute Code(s): G93.40 - ENCEPHALOPATHY, UNSPECIFIED Status: Acute (2) TIA (transient ischemic attack) Code(s): G45.9 - TRANSIENT CEREBRAL ISCHEMIC ATTACK, UNSPECIFIED Status: Acute (3) Hypertension Code(s): I10 - ESSENTIAL (PRIMARY) HYPERTENSION Status: Chronic (4) Diabetes mellitus type 2 in nonobese Code(s): E11.9 - TYPE 2 DIABETES MELLITUS WITHOUT COMPLICATIONS Status: Chronic - Plan * Encephalopathy- ? etiology- possibly cerebral vascular disease * Await MRI results--------------> ecephalomalacia, gliosis, left MCA stroke; chronically occluded left ICA. * HTN- blood pressure * DM- blood glucose stable * Echo results noted * Currently there are no signs of infection- there is no fever, and WBC count is normal- CT scan of the abdomen is essentially negative, as well as the CXR, and UA- would continue antibiotics overnight, and consider to discontinue if no evidence of infection * Will contul Neurology for continued confusion * * updated the dtr [phone] and she will come tomorrow to have direct conversation pt has labile mentation, work up negative - no infectious source -cristina d/t prior stroke and pt is not articulate per dtr since prior stroke -nl tsh, b12, folate and vitamin D level she could have accelerated dementia with stroke of 02/2019 as it affected sig.. part of the brain. missed talking to family today, as delay in coming back from ICU, left a detailed message to the dtr, whom i talk to her y'day.
[2019-08-02] MEDS ORDERED: Amoxicillin/Potassium Clav 500 MG TAB PO SCH (14:15)
[2019-08-02] MEDS: Amoxicillin/Potassium Clav 500 MG TAB PO SCH (20:45)
[2019-08-02] MEDS: Atorvastatin Calcium 40 MG TAB PO SCH (20:45)
[2019-08-03] MEDS: Ipratropium Bromide 2.5 ml Neb NEB SCH ×4 (01:20→19:09)
[2019-08-03 04:13] VITALS: BMI 31.1
[2019-08-03] MEDS: Lisinopril 20 MG TAB PO SCH (07:58)
[2019-08-03] MEDS: Polyethylene Glycol 3350 17 GM Packet PO SCH (07:58)
[2019-08-03] MEDS: Famotidine 20 MG TAB PO SCH ×2 (07:58→21:08)
[2019-08-03] MEDS: Enoxaparin Sodium 40 MG/0.4 ML SYRINGE SC SCH (07:58)
[2019-08-03] MEDS: Gabapentin 100 MG CAP PO SCH ×3 (07:58→21:09)
[2019-08-03] MEDS: glipiZIDE 5 MG TAB PO SCH (07:59)
[2019-08-03] MEDS: HYDROcodone/Acetaminophen 5/325 mg Tablet PO PRN ×3 (07:59→21:07)
[2019-08-03] MEDS: Aspirin 81 mg Enteric Coated Tablet PO SCH (08:00)
[2019-08-03] MEDS: Amoxicillin/Potassium Clav 500 MG TAB PO SCH ×2 (08:00→21:09)
--- NOTE | 2019-08-03 12:49 | PDOC.HOSPP ---
- Subjective Encounter Date: 08/03/19 Encounter Time: 09:20 Subjective: she is better, no confusion, EEG study in progress. - Objective Vital Signs & Weight: Vital Signs (12 hours) Temp Pulse Resp BP BP Pulse Ox 08/03/19 08:27 77 16 99 08/03/19 07:24 97.9 F 77 18 149/73 H 94 L 08/03/19 03:35 97.6 F 83 17 146/84 H 95 08/03/19 01:20 74 14 92 L Weight Admit Weight 197 lb 6.4 oz Weight 193 lb 9.6 oz I&O: 08/02/19 08/03/19 08/04/19 06:59 06:59 06:59 Intake Total 2160 2930 Output Total 4750 5350 Balance -2590 -2420 Result Diagrams: 08/02/19 04:27 08/02/19 04:27 Additional Labs: Accuchecks 08/03/19 08/02/19 08/02/19 05:51 20:26 16:54 POC Glucose 123 H 152 H 104 Hospitalist ROS - Medication Medications: Active Medications Generic Name Dose Route Start Last Admin Trade Name Freq PRN Reason Stop Dose Admin Hydrocodone Bitart/Acetaminophen 1 tab 07/31/19 00:54 08/03/19 07:59 [place] 5/325 PO 1 tab Q4H PRN Administration Moderate Pain (4-6) Amoxicillin/Clavulanate Potassium 500 mg 08/02/19 21:00 08/03/19 08:00 Augmentin PO 500 mg Q12HR JEANINE Administration Aspirin 81 mg 07/31/19 09:00 08/03/19 08:00 Ecotrin PO 81 mg DAILY JEANINE Administration Atorvastatin Calcium 40 mg 07/31/19 21:00 08/02/19 20:45 Lipitor PO 40 mg HS JEANINE Administration Enoxaparin Sodium 40 mg 07/31/19 09:00 08/03/19 07:58 Lovenox SC 40 mg 0900 JEANINE Administration Famotidine 20 mg 07/31/19 09:00 08/03/19 07:58 Pepcid PO 20 mg BID JEANINE Administration Gabapentin 100 mg 07/31/19 09:00 08/03/19 07:58 Neurontin PO 100 mg 0900,1500 JEANINE Administration Gabapentin 200 mg 07/31/19 21:00 08/02/19 20:46 Neurontin PO 200 mg HS JEANINE Administration Glipizide 5 mg 07/31/19 09:00 08/03/19 07:59 Glucotrol PO 5 mg DAILY JEANINE Administration Insulin Human Regular 0 units 07/31/19 06:51 08/02/19 11:56 Humulin R SC 2 units .MODERATE SLIDING SC PRN Administration Moderate Correctional Scale Insulin Human Regular 0 units 07/31/19 21:51 08/01/19 21:32 Humulin R SC 2 unit .BEDTIME SLIDING SC PRN Administration Bedtime Correctional Scale Ipratropium [place] 2.5 ml 07/31/19 13:00 08/03/19 08:27 Atrovent NEB 2.5 ml [id number] JEANINE Administration Lisinopril 40 mg 07/31/19 09:00 08/03/19 07:58 Zestril PO 40 mg DAILY JEANINE Administration Polyethylene Glycol 17 gm 07/31/19 09:00 08/03/19 07:58 Miralax PO 17 gm DAILY JEANINE Administration Sodium Chloride 10 ml 07/31/19 06:51 08/02/19 20:46 Flush - Normal Saline IVF 10 ml PRN PRN Administration Saline Flush - Exam General Appearance: NAD, awake alert Eye: PERRL ENT: normocephalic atraumatic Neck: supple Heart: RRR Respiratory: CTAB, normal chest expansion Gastrointestinal: soft, normal bowel sounds Hosp A/P - Plan (1) Encephalopathy acute Code(s): G93.40 - ENCEPHALOPATHY, UNSPECIFIED Status: Acute (2) TIA (transient ischemic attack) Code(s): G45.9 - TRANSIENT CEREBRAL ISCHEMIC ATTACK, UNSPECIFIED Status: Acute (3) Hypertension Code(s): I10 - ESSENTIAL (PRIMARY) HYPERTENSION Status: Chronic (4) Diabetes mellitus type 2 in nonobese Code(s): E11.9 - TYPE 2 DIABETES MELLITUS WITHOUT COMPLICATIONS Status: Chronic - Plan * Encephalopathy- ? etiology- possibly cerebral vascular disease * Await MRI results--------------> ecephalomalacia, gliosis, left MCA stroke; chronically occluded left ICA. * HTN- blood pressure * DM- blood glucose stable * Echo results noted * Currently there are no signs of infection- there is no fever, and WBC count is normal- CT scan of the abdomen is essentially negative, as well as the CXR, and UA- would continue antibiotics overnight, and consider to discontinue if no evidence of infection * Will contul Neurology for continued confusion * * updated the dtr [phone] and she will come tomorrow to have direct conversation pt has labile mentation, work up negative - no infectious source -cristina d/t prior stroke and pt is not articulate per dtr since prior stroke -nl tsh, b12, folate and vitamin D level she could have accelerated dementia with stroke of 02/2019 as it affected sig.. part of the brain. missed talking to family today, as delay in coming back from ICU, left a detailed message to the dtr, whom i talk to her y'day. EEG study in progress. if no abnormality, plan for home discharge.
--- NOTE | 2019-08-03 13:52 | PDOC.HOSPP ---
- Subjective Encounter Date: 08/03/19 Subjective: NEUROLOGY PROGRESS NOTE No acute events overnight. Patient following commands appropriately but oriented to herself only - Objective Vital Signs & Weight: Vital Signs (12 hours) Temp Pulse Resp BP BP Pulse Ox 08/03/19 08:27 77 16 99 08/03/19 07:24 97.9 F 77 18 149/73 H 94 L 08/03/19 03:35 97.6 F 83 17 146/84 H 95 Weight Admit Weight 197 lb 6.4 oz Weight 193 lb 9.6 oz I&O: 08/02/19 08/03/19 08/04/19 06:59 06:59 06:59 Intake Total 2160 2930 Output Total 4750 5350 Balance -2590 -2420 Result Diagrams: 08/02/19 04:27 08/02/19 04:27 Additional Labs: Accuchecks 08/03/19 08/02/19 08/02/19 05:51 20:26 16:54 POC Glucose 123 H 152 H 104 Radiology Reviewed by me: Yes EKG Reviewed by me: Yes Hospitalist ROS - Review of Systems ROS unobtainable: due to mental status (due to aphasia) - Medication Medications: Active Medications Generic Name Dose Route Start Last Admin Trade Name Freq PRN Reason Stop Dose Admin Hydrocodone Bitart/Acetaminophen 1 tab 07/31/19 00:54 08/03/19 13:10 [place] 5/325 PO 1 tab Q4H PRN Administration Moderate Pain (4-6) Amoxicillin/Clavulanate Potassium 500 mg 08/02/19 21:00 08/03/19 08:00 Augmentin PO 500 mg Q12HR JEANINE Administration Aspirin 81 mg 07/31/19 09:00 08/03/19 08:00 Ecotrin PO 81 mg DAILY JEANINE Administration Atorvastatin Calcium 40 mg 07/31/19 21:00 08/02/19 20:45 Lipitor PO 40 mg HS JEANINE Administration Enoxaparin Sodium 40 mg 07/31/19 09:00 08/03/19 07:58 Lovenox SC 40 mg 0900 JEANINE Administration Famotidine 20 mg 07/31/19 09:00 08/03/19 07:58 Pepcid PO 20 mg BID JEANINE Administration Gabapentin 100 mg 07/31/19 09:00 08/03/19 13:10 Neurontin PO 100 mg 0900,1500 JEANINE Administration Gabapentin 200 mg 07/31/19 21:00 08/02/19 20:46 Neurontin PO 200 mg HS JEANINE Administration Glipizide 5 mg 07/31/19 09:00 08/03/19 07:59 Glucotrol PO 5 mg DAILY JEANINE Administration Insulin Human Regular 0 units 07/31/19 06:51 08/02/19 11:56 Humulin R SC 2 units .MODERATE SLIDING SC PRN Administration Moderate Correctional Scale Insulin Human Regular 0 units 07/31/19 21:51 08/01/19 21:32 Humulin R SC 2 unit .BEDTIME SLIDING SC PRN Administration Bedtime Correctional Scale Ipratropium [place] 2.5 ml 07/31/19 13:00 08/03/19 08:27 Atrovent NEB 2.5 ml [id number] JEANINE Administration Lisinopril 40 mg 07/31/19 09:00 08/03/19 07:58 Zestril PO 40 mg DAILY JEANINE Administration Polyethylene Glycol 17 gm 07/31/19 09:00 08/03/19 07:58 Miralax PO 17 gm DAILY JEANINE Administration Sodium Chloride 10 ml 07/31/19 06:51 08/02/19 20:46 Flush - Normal Saline IVF 10 ml PRN PRN Administration Saline Flush - Exam Eye: PERRL ENT: normocephalic atraumatic Neck: supple Heart: RRR Respiratory: CTAB Gastrointestinal: soft Extremities: no cyanosis, no clubbing, no edema Skin: normal turgor, no lesions, no rashes Neurological: facial droop, hemiplegia, speech deficit, vision deficit Neurological - other findings: right facial droop and righ themiplegia Musculoskeletal: normal tone, no muscle wasting Psychiatric: normal affect, oriented to person Hosp A/P (1) CVA (cerebrovascular accident due to intracerebral hemorrhage) Code(s): I61.9 - NONTRAUMATIC INTRACEREBRAL HEMORRHAGE, UNSPECIFIED Status: Acute (2) Encephalopathy acute Code(s): G93.40 - ENCEPHALOPATHY, UNSPECIFIED Status: Acute (3) TIA (transient ischemic attack) Code(s): G45.9 - TRANSIENT CEREBRAL ISCHEMIC ATTACK, UNSPECIFIED Status: Acute (4) Diabetes mellitus type 2 in nonobese Code(s): E11.9 - TYPE 2 DIABETES MELLITUS WITHOUT COMPLICATIONS Status: Chronic (5) Hypertension Code(s): I10 - ESSENTIAL (PRIMARY) HYPERTENSION Status: Chronic - Plan 89 year old with waxing and waning mental status. Most likely due to acute intracranial process. EEG reviewed which did not reveal seizure activity. MRI brain showe old LMCA stroke but areas in the left cerebral hemisphere suspicious for acute infarctions. Follow up MRI brain recommended in 3 months. Neurochecks every 4 hours. Switch to Plavix. Continue aspirin for secondary stroke prevention. Telemetry. Control BP and BG. PT/OT/Speech Continue home medications Continue medical management per primary team. Plan discussed with primary attending.
--- NOTE | 2019-08-03 16:10 | EEG ---
Referring Physician: Parish DE OLIVEIRA EEG # [id number] TEST TYPE: EXTENDED CONTINUOUS VIDEO EEG REPORT: This EEG was performed using 24 channel [place] video digital EEG machine with 24 disc electrodes. This was an extended 2 hour 10 minutes of inpatient video EEG recording. Digital analysis of the EEG was done for spike and seizure detection which revealed no abnormalities. BACKGROUND: The posterior background rhythm is 8.5-9 hertz. Minimal reactivity seen to eye opening and eye closure. HYPERVENTILATION: Was not performed. PHOTIC STIMULATION: Bioccipital response seen with photic stimulation. SLEEP: Drowsiness and sleep are observed. EEG DIAGNOSIS: 1.) Intermittent irregular theta activity, left greater than right. 2.) Nonsustained posterior background rhythm. CLINICAL INTERPRETATION: THIS EEG IS CONSISTENT WITH MILD GENERALIZED NONSPECIFIC CEREBRAL DYSFUNCTION. THERE IS ALSO EVIDENCE OF FOCAL CEREBRAL DYSFUNCTION IN THE LEFT FRONTOTEMPORAL REGION. NO ICTAL OR INTERICTAL EPILEPTIFORM ABNORMALITIES SEEN DURING THE RECORDING. Resource Conservation Manager: LANDON Idea Man: EEG.KELLY STEPHENSON
[2019-08-03] MEDS: Atorvastatin Calcium 40 MG TAB PO SCH (21:08)
[2019-08-04] MEDS: Ipratropium Bromide 2.5 ml Neb NEB SCH ×3 (00:08→13:40)
[2019-08-04] MEDS: HYDROcodone/Acetaminophen 5/325 mg Tablet PO PRN (03:29)
[2019-08-04] MEDS ORDERED: Clopidogrel Bisulfate 75 MG TAB PO SCH (09:00)
[2019-08-04] MEDS: Famotidine 20 MG TAB PO SCH (10:50)
[2019-08-04] MEDS: Lisinopril 20 MG TAB PO SCH (10:51)
[2019-08-04] MEDS: glipiZIDE 5 MG TAB PO SCH (10:51)
[2019-08-04] MEDS: Gabapentin 100 MG CAP PO SCH ×2 (10:51→16:14)
[2019-08-04] MEDS: Amoxicillin/Potassium Clav 500 MG TAB PO SCH (10:52)
[2019-08-04] MEDS: Polyethylene Glycol 3350 17 GM Packet PO SCH (10:52)
[2019-08-04] MEDS: Enoxaparin Sodium 40 MG/0.4 ML SYRINGE SC SCH (10:52)
[2019-08-04] MEDS: Insulin Regular 300 UNITS/3 ML VIAL SC PRN (10:53)
[2019-08-04] MEDS ORDERED: Bisacodyl 5 MG TAB PO SCH ×2 (12:00→21:00)
[2019-08-04 12:16] VITALS: BP 168/79; TEMP 97.8
--- NOTE | 2019-08-04 13:24 | PDOC.HOSPP ---
- Subjective Encounter Date: 08/04/19 Encounter Time: 09:10 Subjective: pt ready to be discharged, but problem with constipation, despite on stool softener. - Objective Vital Signs & Weight: Vital Signs (12 hours) Temp Pulse Resp BP Pulse Ox 08/04/19 11:57 97.8 F 82 18 168/79 H 94 L 08/04/19 07:40 76 14 99 08/04/19 07:05 97.6 F 70 16 123/70 94 L 08/04/19 03:20 98.1 F 74 14 118/64 93 L Weight Admit Weight 197 lb 6.4 oz Weight 193 lb 9.6 oz I&O: 08/03/19 08/04/19 08/05/19 06:59 06:59 06:59 Intake Total 2930 Output Total 5117 6160 1050 Balance -2420 -3750 -1050 Result Diagrams: 08/02/19 04:27 08/02/19 04:27 Additional Labs: Accuchecks 08/04/19 08/04/19 08/03/19 10:40 06:47 19:59 POC Glucose 191 H 143 H 224 H 08/03/19 08/03/19 17:07 12:44 POC Glucose 124 H 182 H Hospitalist ROS - Medication Medications: Active Medications Generic Name Dose Route Start Last Admin Trade Name Freq PRN Reason Stop Dose Admin Hydrocodone Bitart/Acetaminophen 1 tab 07/31/19 00:54 08/04/19 03:29 [place] 5/325 PO 1 tab Q4H PRN Administration Moderate Pain (4-6) Amoxicillin/Clavulanate Potassium 500 mg 08/02/19 21:00 08/04/19 10:52 Augmentin PO 500 mg Q12HR JEANINE Administration Atorvastatin Calcium 40 mg 07/31/19 21:00 08/03/19 21:08 Lipitor PO 40 mg HS JEANINE Administration Clopidogrel Bisulfate 75 mg 08/04/19 09:00 08/04/19 10:51 Plavix PO 75 mg DAILY JEANINE Administration Enoxaparin Sodium 40 mg 07/31/19 09:00 08/04/19 10:52 Lovenox SC 40 mg 0900 JEANINE Administration Famotidine 20 mg 07/31/19 09:00 08/04/19 10:50 Pepcid PO 20 mg BID JEANINE Administration Gabapentin 100 mg 07/31/19 09:00 08/04/19 10:51 Neurontin PO 100 mg 0900,1500 JEANINE Administration Gabapentin 200 mg 07/31/19 21:00 08/03/19 21:09 Neurontin PO 200 mg HS JEANINE Administration Glipizide 5 mg 07/31/19 09:00 08/04/19 10:51 Glucotrol PO 5 mg DAILY JEANINE Administration Insulin Human Regular 0 units 07/31/19 06:51 08/04/19 10:53 Humulin R SC 2 units .MODERATE SLIDING SC PRN Administration Moderate Correctional Scale Insulin Human Regular 0 units 07/31/19 21:51 08/01/19 21:32 Humulin R SC 2 unit .BEDTIME SLIDING SC PRN Administration Bedtime Correctional Scale Ipratropium [place] 2.5 ml 07/31/19 13:00 08/04/19 07:40 Atrovent NEB 2.5 ml [id number] JEANINE Administration Lisinopril 40 mg 07/31/19 09:00 08/04/19 10:51 Zestril PO 40 mg DAILY JEANINE Administration Polyethylene Glycol 17 gm 07/31/19 09:00 08/04/19 10:52 Miralax PO 17 gm DAILY JEANINE Administration Sodium Chloride 10 ml 07/31/19 06:51 08/02/19 20:46 Flush - Normal Saline IVF 10 ml PRN PRN Administration Saline Flush - Exam General Appearance: NAD, awake alert Eye: PERRL ENT: normocephalic atraumatic Neck: supple Heart: RRR Respiratory: CTAB, normal chest expansion Gastrointestinal: soft, normal bowel sounds Neurological: no focal deficits Hosp A/P - Plan (1) Encephalopathy acute Code(s): G93.40 - ENCEPHALOPATHY, UNSPECIFIED Status: Acute (2) TIA (transient ischemic attack) Code(s): G45.9 - TRANSIENT CEREBRAL ISCHEMIC ATTACK, UNSPECIFIED Status: Acute (3) Hypertension Code(s): I10 - ESSENTIAL (PRIMARY) HYPERTENSION Status: Chronic (4) Diabetes mellitus type 2 in nonobese Code(s): E11.9 - TYPE 2 DIABETES MELLITUS WITHOUT COMPLICATIONS Status: Chronic - Plan * Encephalopathy- ? etiology- possibly cerebral vascular disease * Await MRI results--------------> ecephalomalacia, gliosis, left MCA stroke; chronically occluded left ICA. * HTN- blood pressure * DM- blood glucose stable * Echo results noted * Currently there are no signs of infection- there is no fever, and WBC count is normal- CT scan of the abdomen is essentially negative, as well as the CXR, and UA- would continue antibiotics overnight, and consider to discontinue if no evidence of infection * Will contul Neurology for continued confusion * * updated the dtr [phone] and she will come tomorrow to have direct conversation pt has labile mentation, work up negative - no infectious source -cristina d/t prior stroke and pt is not articulate per dtr since prior stroke -nl tsh, b12, folate and vitamin D level she could have accelerated dementia with stroke of 02/2019 as it affected sig.. part of the brain. missed talking to family today, as delay in coming back from ICU, left a detailed message to the dtr, whom i talk to her y'day. EEG completed--focal temporal region activity and general slowing activity overall. constipation - pt is quite constipated, per staff despite stool softeners. will try aggressive bowel regimen and hopefully we can discharge her today.
--- NOTE | 2019-08-04 16:45 | DIS ---
DATE OF ADMISSION: 07/31/2019 DATE OF DISCHARGE: 08/04/2019 DISCHARGE MEDICATIONS: 1. Plavix 75 mg daily. 2. Glipizide 5 mg daily. 3. Lisinopril 40 mg daily. 4. Spiriva 2 inhalation two puffs daily. 5. Norvasc 10 mg daily. 6. Gabapentin 2 capsules at bedtime. 7. Metformin 1000 mg twice a day. 8. Protonix 40 mg daily. DISCHARGE DIAGNOSES: 1. Metabolic encephalopathy. 2. Transient ischemic attack. 3. Hypertension. 4. Type 2 diabetes mellitus. 5. History of significant left MCA stroke and chronically occluded left ICA. Please see the daily progress note for today. HOSPITAL COURSE: This is a 58-year-old female with significant left MCA stroke and receptive aphasia, presented with worsening of her confusion per her family. For the most part, managed with supportive measures only. An MRI showed encephalomalacia, gliosis, the old left MCA stroke and chronically occluded appearing left ICA. Her mentation was quite labile, waxing and waning , but for the last 2 days, she remained more alert, active, and able to answer some simple questions. I have talked to the family, daughter at [phone]. Her confusion again has been multifactorial with a huge stroke. Her lab workup including TSH, B12, folate, and vitamin D level are in the normal range. Electroencephalogram showed focal temporal regional activity as well as generalized slowing activity. The patient did have constipation, but that seems to be improving with the stool softeners. She is clinically stable to be discharged home today. Daughter will give her a ride this evening. DISCHARGE INSTRUCTIONS: Activity as tolerated. Regular diet. Follow up with the primary care physician in 1 to 2 weeks. Her mentation will be labile given her massive stroke recently. She has scar tissues as well as gliosis which put her at risk for seizure and in this regard, any antiepileptic medication is not required as a prophylactic or empiric at this point. I discussed this topic with the neurologist. She was on a daily aspirin which has been switched to Plavix given her significant size stroke, and receptive aphasia. The patient will be hemodynamically stable to be discharged home today. DISCHARGE TIME: Over 30 minutes. Job ID: [id number] MTDD
== END 2019-08-04 16:17 | disposition home or self-care (01) | DRG 56 ==
LOC: ERS 20:00 → OBSVTOIN 07-31 00:51 → 2SW 07-31 00:51
PROVIDERS: ADMIT Internal Medicine; ATTEND Internal Medicine
DX: I69.398 Other sequelae of cerebral infarction (principal); G93.41 Metabolic encephalopathy; I69.351 Hemiplegia and hemiparesis following cerebral infarction affecting right dominant side; G45.9 Transient cerebral ischemic attack, unspecified; R47.01 Aphasia; I10 Essential (primary) hypertension; I95.9 Hypotension, unspecified; E78.00 Pure hypercholesterolemia, unspecified; K21.9 Gastro-esophageal reflux disease without esophagitis; J44.9 Chronic obstructive pulmonary disease, unspecified; E87.5 Hyperkalemia; E11.65 Type 2 diabetes mellitus with hyperglycemia; E11.40 Type 2 diabetes mellitus with diabetic neuropathy, unspecified; F10.10 Alcohol abuse, uncomplicated; F12.10 Cannabis abuse, uncomplicated; K59.00 Constipation, unspecified; F17.210 Nicotine dependence, cigarettes, uncomplicated; Z88.5 Allergy status to narcotic agent; Z88.8 Allergy status to other drugs, medicaments and biological substances; Z90.49 Acquired absence of other specified parts of digestive tract; Z90.710 Acquired absence of both cervix and uterus; I69.320 Aphasia following cerebral infarction; Z79.4 Long term (current) use of insulin
CPT/HCPCS: 36415; 36416; 51701; 70450; 70551; 71045; 74177; 80048; 80053; 80061; 80074; 80202; 81003; 82140; 82306; 82607; 82746; 83605; 83735; 83880; 84443; 84484; 85025; 87040; 87086; 87635; 87804; 93005; 93306; 93880; 94640; 94760; 95715; 95816; 95819; 95957; 96361; 96365; 96367; A4353; J0692; J1650; J1815; J2543; J3370; J3490; J7030; Q9967; U0003

== ENCOUNTER 2019-09-24 22:47 | Inpatient (IN) | payer OTHER ==
--- NOTE | 2019-09-24 23:23 | RAD ---
Chest AP view INDICATION: Dyspnea and low blood pressure COMPARISON: July 30, 2019 single view of the chest FINDINGS: Lungs: There are new reticular nodular opacities present within the region of the lingula and left l ower lobe. Cardiac silhouette: The cardiomediastinal silhouette appears within normal limits. Pulmonary vasculature: Normal Pleural spaces: No pleural effusion or pneumothorax is demonstrated. Upper abdomen: No abnormality seen. Osseous structures: No acute osseous abnormality. Additional findings: None. IMPRESSION: New reticular nodular opacities within the region of the lingula left lower lobe are suspicious for b ronchiolitis of infectious or inflammatory etiology. Recommend radiographic follow-up to resolution.
[2019-09-24 23:32] LABS: Bilirubin Negative (Negative); Blood, Urine 1+ (Negative); Clarity Clear (Clear); Glucose, Urine (Dipstick) Normal (Negative); Ketone, Urine Negative (Negative); Leukocyte 25 Leu/uL (Negative); Nitrite Negative (Negative); Protein, Urine (Dipstick) 20 mg/dL (Neg-Trace); Specific Gravity, Urine 1.017 (1.002-1.036)
[2019-09-24 23:40] LABS: #Basophils 0.1 thou/uL (0.0-0.2); #Eosinphils 0.1 thou/uL (0.0-0.7); #Lymphocytes 2.1 thou/uL (1.20-3.40); #Monocytes 0.8 thou/uL (0.11-0.59); #Neutrophils 8.1 thou/uL (1.40-6.50); %Basophils 0.7 % (0.0-1.0); %Eosinophils 0.6 % (0.0-10.0); %Lymphocytes 18.9 % (21.0-51.0); %Monocytes 6.8 % (0.0-10.0); %Neutrophils 72.9 % (42.0-75.0); Hemoglobin 14.1 g/dL (12.0-16.0); Mean Corpuscular HGB CONC 34.8 g/dL (32.0-36.0); Mean Corpuscular Hemoglobin 33.2 pg (27.0-31.0); Mean Corpuscular Volume 95.3 fL (78.0-98.0); Mean Platelet Volume 7.2 fL (7.4-10.4); Platelet Count 238 thou/uL (130-400); RBC Distribution Width 11.4 % (11.5-14.5); Red Blood Cell (RBC) Count 4.25 mill/uL (4.20-5.40)
[2019-09-24 23:41] LABS: Bacteria/HPF 1+ HPF (None Seen)
[2019-09-24] MEDS ORDERED: Azithromycin 500 MG VIAL ONE (23:57)
[2019-09-24] MEDS ORDERED: cefTRIAXone\\ROCEPHIN 2 GM VIAL ONE (23:57)
[2019-09-25 00:03] LABS: ALT (SGPT) 15 U/L (8-55); AST (SGOT) 14 U/L (5-34); Albumin 3.6 g/dL (3.5-5.0); Alkaline Phosphatase 78 U/L (40-110); Anion Gap 17 mmol/L (10-20); BUN (Urea Nitrogen) 16 mg/dL (9.8-20.1); Bilirubin, Total 0.2 mg/dL (0.2-1.2); Calc. Creatinine Clearance 0 mL/min (70-130); Calcium 9.1 mg/dL (7.8-10.44); Carbon Dioxide 22 mmol/L (22-29); Chloride 102 mmol/L (98-107); Estimated GFR-MDRD 62; Globulin 2.4 g/dL (2.4-3.5); Glucose 174 mg/dL (70-105); Potassium 4.6 mmol/L (3.5-5.1); Sodium 136 mmol/L (136-145)
[2019-09-25] MEDS ORDERED: Dextrose 5% in Water 1,000 ML IV PRN (03:35)
[2019-09-25] MEDS ORDERED: Dextrose 50% Abboject 50 ML SYRINGE SLOW IVP PRN (03:35)
[2019-09-25] MEDS ORDERED: HumaLOG 300 UNITS/3 ML VIAL SC PRN (03:35)
[2019-09-25] MEDS ORDERED: Enoxaparin Sodium 40 MG/0.4 ML SYRINGE SC SCH (03:45)
--- NOTE | 2019-09-25 03:49 | HP ---
REASON FOR ADMISSION: Low blood pressure. HISTORY OF PRESENT ILLNESS: This is a 58-year-old female patient, who has history of stroke and has aphasia with right-sided deficits as a result of her stroke. She was noted to be more fatigued the past few days, napping and sleeping more than usual. Today, she had poor appetite and her urine had an odor. Family called EMS. Upon their arrival, her blood pressure was systolic of 70. In the ER, her systolic was 90. She was given fluids and currently, her blood pressure is within normal limits. I did review her records and her last admission to our hospital was in July 2019 for confusion secondary to metabolic encephalopathy and possible TIA. During her stay, she had an MRI done that showed encephalomalacia and her old stroke. Her mentation was noted to be labile, waxing and waning. An EEG showed focal temporal regional activity. She was seen by Neurology. They did not suggest her to be started on antiepileptics. PAST MEDICAL HISTORY: 1. Diabetes, type 2. 2. High blood pressure. 3. Stroke. 4. COPD. 5. Cholecystectomy. 6. Hysterectomy. 7. Bladder suspension. FAMILY HISTORY: Negative for heart disease. SOCIAL HISTORY: She does report alcohol use in the past. REVIEW OF SYSTEMS: All systems reviewed except the above mentioned, found to be negative. ALLERGIES: TO CODEINE. PHYSICAL EXAMINATION: GENERAL: She is awake and alert. She is aphasic, but she follows commands. Does not appear in distress. VITAL SIGNS: Her blood pressure is 118/63, pulse is 79, and saturating 98% on room air. HEENT: Head is nontraumatic and normocephalic. Pupils equal, reactive. Extraocular movements are intact. Nonicteric sclerae. Well-injected conjunctivae. Oral mucosa normal. Nasal mucosa normal. NECK: Supple. No adenopathy. No murmur. Thyroid is not palpable. Trachea is midline. No supraclavicular lymphadenopathy. HEART: S1 and S2, regular. No murmur. No gallops or friction rubs. No displacement of PMI. LUNGS: Expiratory crackles at the bases bilaterally. ABDOMEN: Bowel sounds are positive. Nontender abdomen. No hepatosplenomegaly. EXTREMITIES: No lower extremity edema. No cyanosis noted. NEUROLOGIC: She cannot move her right upper and lower extremities. She is aphasic. Cranial nerves appear to be intact. Otherwise, she has good movement in her left upper and left lower extremity. LABORATORY DATA: Blood work shows a WBC of 11, hemoglobin of 14.1, and platelets of 238. Sodium 136, potassium 4.6, bicarb of 22, and creatinine 0.92. Urine shows positive leukocyte esterase. COVID-19 not detected. ASSESSMENT AND PLAN: This is a 58-year-old female patient, who is presenting with hypotension and increased sleep somnolence, most likely secondary to urinary tract infection, possible pneumonia. Neuro. We will make maintain her on Plavix. We will do frequent neuro checks. ID. The patient will be on Rocephin and azithromycin, should cover pneumonia and a possible UTI. For her diabetes, she will be on insulin sliding scale. For her blood pressure, initially low, now within normal limits. We will continue with IV fluids. I did discuss the code status with her daughter, who is the medical power of commercial attorney and she is a full code. Job ID: [id number]
[2019-09-25 04:28] VITALS: BMI 30.4
[2019-09-25] MEDS: Sodium Chloride 0.9% 1,000 ML IV SCH ×2 (05:18→17:12)
[2019-09-25 08:06] LABS: Hemoglobin 14.8 g/dL (12.0-16.0); Mean Corpuscular HGB CONC 34.1 g/dL (32.0-36.0); Mean Corpuscular Hemoglobin 32.5 pg (27.0-31.0); Mean Corpuscular Volume 95.5 fL (78.0-98.0); Mean Platelet Volume 7.1 fL (7.4-10.4); Platelet Count 229 thou/uL (130-400); RBC Distribution Width 11.4 % (11.5-14.5); Red Blood Cell (RBC) Count 4.56 mill/uL (4.20-5.40); White Blood Cell (WBC) Count 9.7 thou/uL (4.8-10.8)
[2019-09-25 08:10] LABS: Eosinophils 1 % (0-10); Lymphocytes 52 % (21-51); MDiff Complete? YES; Monocytes 9 % (0-10); Neutrophil 37 % (42-75); Platelet Morphology Comment Appears Adequate; RBC Morphology Normal; Reactive Lymphocytes 1 % (0-10)
[2019-09-25] MEDS: Enoxaparin Sodium 40 MG/0.4 ML SYRINGE SC SCH (08:29)
[2019-09-25] MEDS: Clopidogrel Bisulfate 75 MG TAB PO SCH (08:29)
--- NOTE | 2019-09-25 13:57 | PDOC.HOSPP ---
- Subjective Encounter Date: 09/25/19 Encounter Time: 10:00 Subjective: is awake, responds to verbal question, has dysarthria and aphasia as well moves left extremities well - Objective Vital Signs & Weight: Vital Signs (12 hours) Temp Pulse Resp BP Pulse Ox 09/25/19 11:45 97.5 F L 84 14 157/79 H 92 L 09/25/19 08:26 97.3 F L 75 16 160/77 H 93 L 09/25/19 08:00 93 L 09/25/19 04:34 95 09/25/19 03:50 97.8 F 87 20 116/60 95 Weight Admit Weight 189 lb Weight 189 lb Result Diagrams: 09/25/19 06:58 09/24/19 23:32 Additional Labs: Accuchecks 09/25/19 09/25/19 10:45 06:19 POC Glucose 124 H 91 Hospitalist ROS - Medication Medications: Active Medications Generic Name Dose Route Start Last Admin Trade Name Freq PRN Reason Stop Dose Admin Clopidogrel Bisulfate 75 mg 09/25/19 09:00 09/25/19 08:29 Plavix PO 75 mg DAILY JEANINE Administration Enoxaparin Sodium 40 mg 09/25/19 09:00 09/25/19 08:29 Lovenox SC 40 mg 0900 JEANINE Administration Sodium Chloride 1,000 mls @ 75 mls/hr 09/25/19 03:30 09/25/19 05:18 Normal Saline 0.9% IV 1,000 mls .[id number] JEANINE Administration - Exam General Appearance: awake alert Eye: PERRL, anicteric sclera ENT: no oropharyngeal lesions, moist mucosa Neck: supple, no JVD Heart: RRR, no murmur Respiratory: no wheezes, no rales Gastrointestinal: soft, non-tender, non-distended, normal bowel sounds Extremities: no cyanosis, no edema Neurological - other findings: chronic right hemiplegia Psychiatric: normal affect, A&O x 3 Hosp A/P (1) UTI (urinary tract infection) Status: Acute Qualifiers: Urinary tract infection type: acute cystitis Hematuria presence: without hematuria Qualified Code(s): N30.00 - Acute cystitis without hematuria (2) Sepsis Code(s): A41.9 - SEPSIS, UNSPECIFIED ORGANISM Status: Acute Qualifiers: Sepsis type: sepsis due to unspecified organism Sepsis acute organ dysfunction status: without acute organ dysfunction Qualified Code(s): A41.9 - Sepsis, unspecified organism (3) H/O: CVA (cerebrovascular accident) Code(s): Z86.73 - PRSNL HX OF TIA (TIA), AND CEREB INFRC W/O RESID DEFICITS Status: Chronic (4) Diabetes mellitus type 2 in nonobese Code(s): E11.9 - TYPE 2 DIABETES MELLITUS WITHOUT COMPLICATIONS Status: Chronic (5) Hypertension Code(s): I10 - ESSENTIAL (PRIMARY) HYPERTENSION Status: Chronic Qualifiers: Hypertension type: essential hypertension Qualified Code(s): I10 - Essential (primary) hypertension - Plan hemostable urine cs shows no growth is on ceftriaxone covid is -ve continue plavix and iv fluids encourage po intake as tolerated dc plan in am if stable may tx to med floor
[2019-09-25] MEDS: Ibuprofen 200 MG TAB PO PRN (18:13)
[2019-09-25] MEDS: Ipratropium Bromide 2.5 ml Neb NEB SCH (19:10)
[2019-09-25] MEDS ORDERED: Atorvastatin Calcium 40 MG TAB PO SCH (21:00)
[2019-09-25] MEDS ORDERED: Gabapentin 100 MG CAP PO SCH (21:00)
[2019-09-25] MEDS ORDERED: Azithromycin 250 MG TAB PO SCH (23:00)
[2019-09-25] MEDS ORDERED: cefTRIAXone\\ROCEPHIN 1 GM in Sodium Chloride 0.9% 100 ML IVPB SCH (23:00)
[2019-09-26] MEDS: Ibuprofen 200 MG TAB PO PRN (00:02)
[2019-09-26] MEDS: Ipratropium Bromide 2.5 ml Neb NEB SCH ×4 (00:57→14:00)
[2019-09-26 06:43] LABS: #Basophils 0.1 thou/uL (0.0-0.2); #Eosinphils 0.3 thou/uL (0.0-0.7); #Lymphocytes 2.2 thou/uL (1.20-3.40); #Monocytes 0.7 thou/uL (0.11-0.59); #Neutrophils 2.6 thou/uL (1.40-6.50); %Eosinophils 5.3 % (0.0-10.0); %Lymphocytes 37.8 % (21.0-51.0); %Monocytes 11.7 % (0.0-10.0); %Neutrophils 44.3 % (42.0-75.0); Hemoglobin 14.3 g/dL (12.0-16.0); Mean Corpuscular Hemoglobin 31.2 pg (27.0-31.0); Mean Corpuscular Volume 94.5 fL (78.0-98.0); Platelet Count 244 thou/uL (130-400); RBC Distribution Width 11.3 % (11.5-14.5); White Blood Cell (WBC) Count 5.8 thou/uL (4.8-10.8)
[2019-09-26 07:06] LABS: Anion Gap 12 mmol/L (10-20); BUN (Urea Nitrogen) 8 mg/dL (9.8-20.1); Calc. Creatinine Clearance 141 mL/min (70-130); Calcium 9.4 mg/dL (7.8-10.44); Carbon Dioxide 27 mmol/L (22-29); Chloride 105 mmol/L (98-107); Estimated GFR-MDRD Greater than 90; Glucose 94 mg/dL (70-105); Potassium 3.9 mmol/L (3.5-5.1); Sodium 140 mmol/L (136-145)
[2019-09-26] MEDS ORDERED: metFORMIN 500 MG TAB PO SCH (08:00)
[2019-09-26] MEDS: Enoxaparin Sodium 40 MG/0.4 ML SYRINGE SC SCH (08:54)
[2019-09-26] MEDS: Clopidogrel Bisulfate 75 MG TAB PO SCH (08:54)
[2019-09-26] MEDS: Sodium Chloride 0.9% 1,000 ML IV SCH (08:59)
[2019-09-26] MEDS ORDERED: Lisinopril 20 MG TAB PO SCH (09:00)
[2019-09-26] MEDS ORDERED: Amlodipine 10 MG TAB PO SCH (09:00)
[2019-09-26] MEDS ORDERED: Clopidogrel Bisulfate 75 MG TAB PO SCH (09:00)
[2019-09-26 11:21] VITALS: BP 141/81; TEMP 98.1
[2019-09-26] MEDS ORDERED: Ipratropium Bromide 2.5 ml Neb ONE (14:34)
--- NOTE | 2019-09-27 08:38 | PQF ---
CLINICAL DOCUMENTATION CLARIFICATION FORM: Dear : Demetria Cordero Date / Time: 09/27/2019 Please exercise your independent, professional judgment in responding to the clarification form. Clinical indicators are provided on the bottom of this form for your review Please check appropriate box(es) to clarify if the following diagnosis has been ruled in our ruled out: Pneumonia [ x ] Ruled in diagnosis [ x] Continue to treat [ ] Resolved [ ] Ruled out diagnosis [ ] Improving [ ] Cannot rule out diagnosis [ ] Other diagnosis [ ] Unable to determine In addition, please specify: Present on Admission (POA): [ x ] Yes [ ] No [ ] Unable to determine To be completed by CDI/Coding staff for physician review: Present Clinical Indicators - Signs / Symptoms / Labs Results and Location in Medical Record [ x ] ED final diagnosis: Pneumonia ED provider report [ x ] 58-year-old female patient presenting with hypotension and increased sleep somnolence, most likely secondary to urinary tract infection, possible pneumonia H&P [ x ] New retricular nodular opacities within the region of the lingula left lower lobe Chest x-ray 09/23 [ x ] WBC is 11.0 (H) Laboratory Present Risk Factors Results and Location in Medical Record [ x ] Sepsis, covid test done is negative Progress note 09/24 by Demetria Cordero MD Present Treatments Results and Location in Medical Record [ x ] IV Rocephin 09/23 Medications [ x ] IV Zithromax 09/23 Medications [ x ] Chest x-ray 09/23 Reports [ ] CDS/Shell Sieve Operator Signature: [id number] Phone #: Date/ Time: 09/27/2019 This is a permanent part of the Medical Record [facility]
--- NOTE | 2019-09-27 15:07 | DIS ---
DATE OF ADMISSION: 09/25/2019 DATE OF DISCHARGE: 09/26/2019 DISCHARGE DISPOSITION: To home. PRIMARY DISCHARGE DIAGNOSES: 1. Urinary tract infection with sepsis resolving. 2. Left lung pneumonia. SECONDARY DISCHARGE DIAGNOSES: History of cerebrovascular accident with hemiplegia, aphasia, diabetes mellitus type 2, hypertension. PROCEDURES DONE DURING HOSPITALIZATION: Chest x-ray done on the day of admission showed possible lingular left lower lobe pneumonia. Had a white count of 11 on admission, discharge white count of 5.8, hemoglobin and hematocrit 14 and 43, platelet count 244. COVID-19 PCR negative. UA was positive for UTI. BUN 8, creatinine 0.5, serum bicarb 27. One set of troponin was negative. Urine culture grew presumptive lactobacillus species less than 10,000 colony-forming units. DISCHARGE MEDICATIONS: 1. Norvasc 10 mg p.o. daily. 2. Lipitor 40 mg p.o. at bedtime. 3. Gabapentin 200 mg p.o. at bedtime and 100 mg p.o. q.a.m. 4. Lisinopril 40 mg p.o. daily. 5. Metformin 1000 mg twice daily. 6. Protonix 40 mg daily. 7. Spiriva inhaler 2 puffs daily. 8. Plavix 75 mg daily. 9. Levaquin 500 mg p.o. daily for another 5 days. ALLERGIES: ALLERGIC TO CODEINE. DISCHARGE PLAN: The patient to follow up with her primary care physician, Dr. Monik Gonzalez, in 1 week. BRIEF COURSE DURING HOSPITALIZATION: The patient initially got admitted on the with complaints of easy fatigue and increased lethargy and sleepiness. Her initial workup revealed a systolic pressure of 70 on arrival with urinary tract infection and possible left lung pneumonia. The patient was placed on broad-spectrum IV antibiotics after pancultures were obtained. She was on Rocephin and Zithromax, which has been transitioned to Levaquin at the time of discharge for both UTI and pneumonia. She has remained hemodynamically stable and has recovered remarkably well within a short span of time. She is wanting to go home. She is advised to take antibiotics as prescribed. She is eating well. She lives with her family and will be shortly discharged home. Please note, I have seen and examined the patient on the day of discharge. Job ID: [id number]
== END 2019-09-26 14:32 | disposition home or self-care (01) | DRG 871 ==
LOC: ERS 22:47 → 2NO 09-25 00:23 → T4-B 09-25 18:41
PROVIDERS: ADMIT Family Medicine; ATTEND Family Medicine
DX: A41.89 Other specified sepsis (principal); J18.9 Pneumonia, unspecified organism; N30.00 Acute cystitis without hematuria; I69.359 Hemiplegia and hemiparesis following cerebral infarction affecting unspecified side; Z20.828 Contact with and (suspected) exposure to other viral communicable diseases; I10 Essential (primary) hypertension; E11.9 Type 2 diabetes mellitus without complications; J44.9 Chronic obstructive pulmonary disease, unspecified; Z90.49 Acquired absence of other specified parts of digestive tract; Z90.710 Acquired absence of both cervix and uterus; Z88.5 Allergy status to narcotic agent; I69.320 Aphasia following cerebral infarction; Z87.891 Personal history of nicotine dependence; Z79.84 Long term (current) use of oral hypoglycemic drugs
CPT/HCPCS: 36415; 36416; 51701; 71045; 80048; 80053; 81003; 81015; 84484; 85025; 87086; 93005; 94640; 96361; 96365; 96367; J0456; J0696; J1650; J3490; J7620; U0002

== ENCOUNTER 2020-03-25 06:44 | Emergency (ER) | payer OTHER ==
[2020-03-25 07:27] LABS: #Basophils 0.1 thou/uL (0.0-0.2); #Eosinphils 0.3 thou/uL (0.0-0.7); #Lymphocytes 3.2 thou/uL (1.20-3.40); #Monocytes 0.8 thou/uL (0.11-0.59); #Neutrophils 3.9 thou/uL (1.40-6.50); %Basophils 1.2 % (0.0-1.0); %Eosinophils 3.8 % (0.0-10.0); %Lymphocytes 38.4 % (21.0-51.0); %Monocytes 9.3 % (0.0-10.0); %Neutrophils 47.3 % (42.0-75.0); Hemoglobin 15.6 g/dL (12.0-16.0); Mean Corpuscular HGB CONC 34.1 g/dL (32.0-36.0); Mean Corpuscular Hemoglobin 33.9 pg (27.0-31.0); Mean Corpuscular Volume 99.3 fL (78.0-98.0); Mean Platelet Volume 6.7 fL (7.4-10.4); Platelet Count 275 thou/uL (130-400); RBC Distribution Width 12.3 % (11.5-14.5); White Blood Cell (WBC) Count 8.2 thou/uL (4.8-10.8)
[2020-03-25 07:48] LABS: ALT (SGPT) 16 U/L (8-55); AST (SGOT) 15 U/L (5-34); Alkaline Phosphatase 45 U/L (40-110); Anion Gap 13 mmol/L (10-20); BUN (Urea Nitrogen) 11 mg/dL (9.8-20.1); Bilirubin, Total 0.3 mg/dL (0.2-1.2); Calc. Creatinine Clearance 0 mL/min (70-130); Calcium 9.4 mg/dL (7.8-10.44); Carbon Dioxide 26 mmol/L (22-29); Chloride 105 mmol/L (98-107); Globulin 2.7 g/dL (2.4-3.5); Glucose 117 mg/dL (70-105); Potassium 4.1 mmol/L (3.5-5.1); Protein, Total 6.7 g/dL (6.0-8.3); Sodium 140 mmol/L (136-145)
--- NOTE | 2020-03-25 08:00 | RAD ---
XR Chest 1 View Portable HISTORY: Nausea, vomiting COMPARISON: 09/24/2019 FINDINGS: The heart size is normal. The lungs are well expanded without focal areas of consolidation, pneumothorax or pleural effusions. IMPRESSION: No radiographic evidence of acute cardiopulmonary process.
[2020-03-25 08:18] LABS: Bilirubin Negative (Negative); Blood, Urine Negative (Negative); Clarity Clear (Clear); Glucose, Urine (Dipstick) Normal (Negative); Ketone, Urine Negative (Negative); Leukocyte Negative Leu/uL (Negative); Nitrite Negative (Negative); Protein, Urine (Dipstick) Negative (Neg-Trace); Specific Gravity, Urine 1.012 (1.002-1.036); Urobilinogen Normal mg/dL (Less than 2); pH, Urine 6.5 (5.0-9.0)
[2020-03-25] MEDS ORDERED: Lidocaine 1% PF 5 ML VIAL ONE (08:20)
--- NOTE | 2020-03-25 08:27 | CT ---
Head CT without contrast 03/25/2020: COMPARISON: 07/30/2019 HISTORY: Altered mental status, right-sided deficits, hypertension, history of stroke TECHNIQUE: Axial CT imaging at 5 mm intervals from vertex through skull base without contrast FINDINGS: There is extensive encephalomalacia involving the left MCA territory consistent with prior infarction as seen on 07/20/2019 exam. There has been interval development of linear areas of calcification within the central aspect of this prior infarction which are likely related to prior he morrhage as the 08/01/2019 brain MRI demonstrated areas of hemorrhage in this region. The imaged paranasal sinuses and mastoid air cells are grossly unremarkable. There is no displaced ca lvarial fracture. No intracranial hemorrhage, midline shift, or mass effect. IMPRESSION: Findings consistent with encephalomalacia and a prior hemorrhage/infarction within the le ft MCA territory. No intracranial hemorrhage. Follow-up brain MRI advised if there are acute symptoms.
--- NOTE | 2020-03-25 10:22 | CT ---
CT ABDOMEN AND PELVIS WITH IV CONTRAST: HISTORY: Nausea, vomiting, and abdominal pain. COMPARISON: 07/31/2019. FINDINGS: The lung bases are unremarkable. The patient is post cholecystectomy with normal-sized biliary tree. There is a 5 mm low-density lesion in the right lobe of the liver. This is not definitely seen on the previous study. There is a stable 7-8 mm low-density lesion in the inferior tip of the right lob e of the liver. The spleen, pancreas, adrenal glands, and kidneys are unremarkable. No free air, free fluid, or lymphadenopathy is seen in the abdomen or pelvis. There are vascular kashif cifications without evidence of aneurysmal dilatation of the abdominal aorta. No acute bony abnormal ity is seen. Small fat-containing ventral hernia is again noted. The small bowel loops are not abno rmally dilated. There is fecal material in the colon and rectum. There is mild colonic diverticulos is without diverticulitis. IMPRESSION: Mild colonic diverticulosis and constipation. POS: TIFFANY
[2020-03-25] MEDS ORDERED: Iopamidol-370 76% 500 ML 1 ML ONE (13:18)
== END 2020-03-25 09:19 | disposition home or self-care (01) ==
LOC: ERS 06:44
DX: R11.2 Nausea with vomiting, unspecified (principal); I10 Essential (primary) hypertension; E78.00 Pure hypercholesterolemia, unspecified; E11.40 Type 2 diabetes mellitus with diabetic neuropathy, unspecified; Z87.891 Personal history of nicotine dependence; Z79.899 Other long term (current) drug therapy
CPT/HCPCS: 36415; 36416; 70450; 71045; 74177; 80053; 81003; 84484; 85025; 93005; Q9967

== ENCOUNTER 2020-08-15 17:58 | Emergency (ER) | payer OTHER ==
[2020-08-15] MEDS ORDERED: Ondansetron PF 4 MG/2 ML Vial ONE (18:35)
[2020-08-15 18:45] LABS: Hemoglobin 16.5 g/dL (12.0-16.0); Mean Corpuscular HGB CONC 35.2 g/dL (32.0-36.0); Mean Corpuscular Hemoglobin 34.5 pg (27.0-31.0); Mean Corpuscular Volume 97.9 fL (78.0-98.0); Mean Platelet Volume 6.5 fL (7.4-10.4); Platelet Count 266 thou/uL (130-400); RBC Distribution Width 11.9 % (11.5-14.5); White Blood Cell (WBC) Count 10.5 thou/uL (4.8-10.8)
[2020-08-15 19:01] LABS: ALT (SGPT) 28 U/L (8-55); AST (SGOT) 21 U/L (5-34); Albumin 4.2 g/dL (3.5-5.0); Alkaline Phosphatase 82 U/L (40-110); Anion Gap 15 mmol/L (10-20); BUN (Urea Nitrogen) 10 mg/dL (9.8-20.1); Bilirubin, Total 0.5 mg/dL (0.2-1.2); Calc. Creatinine Clearance 0 mL/min (70-130); Calcium 9.9 mg/dL (7.8-10.44); Carbon Dioxide 25 mmol/L (22-29); Chloride 98 mmol/L (98-107); Globulin 3.1 g/dL (2.4-3.5); Glucose 124 mg/dL (70-105); Lipase 33 U/L (8-78); Protein, Total 7.3 g/dL (6.0-8.3); Sodium 134 mmol/L (136-145)
[2020-08-15 19:02] LABS: Band 10 % (5-11); Lymphocytes 30 % (21-51); MDiff Complete? YES; Monocytes 9 % (0-10); Myelocyte 1 % (0-0); Neutrophil 48 % (42-75); Platelet Morphology Comment Appears Adequate; RBC Morphology Normal; Reactive Lymphocytes 1 % (0-10)
[2020-08-15 20:31] LABS: Bilirubin Negative (Negative); Blood, Urine Negative (Negative); Clarity Clear (Clear); Glucose, Urine (Dipstick) Normal (Negative); Ketone, Urine Trace mg/dL (Negative); Leukocyte Negative Leu/uL (Negative); Nitrite Negative (Negative); Protein, Urine (Dipstick) Negative (Neg-Trace); Specific Gravity, Urine 1.007 (1.002-1.036); Urobilinogen Normal mg/dL (Less than 2); pH, Urine 6.5 (5.0-9.0)
[2020-08-16 12:35] LABS: SARS-CoV-2 PCR by NAA Not Detected (NotDetected)
== END 2020-08-15 21:48 | disposition home or self-care (01) ==
LOC: ERS 17:58
DX: J06.9 Acute upper respiratory infection, unspecified (principal); R19.7 Diarrhea, unspecified; Z20.822 Contact with and (suspected) exposure to COVID-19; I10 Essential (primary) hypertension; E78.00 Pure hypercholesterolemia, unspecified; E11.40 Type 2 diabetes mellitus with diabetic neuropathy, unspecified; J44.9 Chronic obstructive pulmonary disease, unspecified; K21.9 Gastro-esophageal reflux disease without esophagitis; F17.210 Nicotine dependence, cigarettes, uncomplicated; Z79.899 Other long term (current) drug therapy
CPT/HCPCS: 71045; 80053; 81003; 83690; 85025; 87086; 96374; J2405; U0003; U0005

== ENCOUNTER 2023-03-11 05:20 | Inpatient (IN) | payer OTHER ==
[2023-03-11] MEDS ORDERED: Ondansetron PF 4 MG/2 ML Vial ONE (05:48)
[2023-03-11] MEDS ORDERED: Morphine 4 MG/ML VIAL ONE (05:48)
[2023-03-11 06:11] LABS: #Basophils 0.1 thou/uL (0.0-0.2); #Monocytes 1.4 thou/uL (0.11-0.59); #Neutrophils 19.9 thou/uL (1.40-6.50); %Basophils 0.3 % (0.0-1.0); %Lymphocytes 5.1 % (21.0-51.0); %Monocytes 6.3 % (0.0-10.0); %Neutrophils 87.3 % (42.0-75.0); Hematocrit 50.4 % (36.0-47.0); Hemoglobin 16.5 g/dL (12.0-16.0); Mean Corpuscular HGB CONC 32.7 g/dL (32.0-36.0); Mean Corpuscular Hemoglobin 31.5 pg (27.0-31.0); Mean Corpuscular Volume 96.2 fl (78.0-98.0); Mean Platelet Volume 9.2 fL (7.4-10.4); Platelet Count 265 10x3/uL (130-400); RBC Distribution Width 13.3 % (11.5-14.5); Red Blood Cell (RBC) Count 5.24 mill/uL (4.20-5.40); White Blood Cell (WBC) Count 22.8 10x3/uL (4.8-10.8)
[2023-03-11] MEDS ORDERED: Ipratropium/Albuterol 3 ML NEB ONE (06:14)
[2023-03-11 06:15] LABS: Base Excess -7.4 mEq/L (-2.0 to +3.0); Calcium, Ionized (venous) 0.94 mmol/L (1.16-1.32); Chloride (VBG) 106 mmol/L (98-106); Hematocrit-VBG 51 % (36.0-47.0); Hemoglobin (Hb) 17.4 g/dL (11.7-16.0); Sodium 137 mmol/L (133-146); pH (venous) 7.434 (7.32-7.43)
[2023-03-11 06:16] LABS: Actual Bicarbonate (HCO3v) 13.9 mEq/L (22-28)
[2023-03-11 06:35] LABS: ALT (SGPT) 27 U/L (8-55); AST (SGOT) 24 U/L (5-34); Albumin 4.1 g/dL (3.4-4.8); Alkaline Phosphatase 79 U/L (40-110); Anion Gap 17 mmol/L (10-20); BUN (Urea Nitrogen) 17 mg/dL (9.8-20.1); Bilirubin, Total 0.4 mg/dL (0.2-1.2); Calc. Creatinine Clearance 0 mL/min (70-130); Calcium 8.9 mg/dL (7.8-10.44); Carbon Dioxide 17 mmol/L (23-31); Chloride 107 mmol/L (98-107); Estimated GFR 70; Globulin 3.1 g/dL (2.4-3.5); Glucose 248 mg/dL (80-115); Potassium 4.4 mmol/L (3.5-5.1); Protein, Total 7.2 g/dL (5.8-8.1); Sodium 137 mmol/L (136-145)
[2023-03-11 06:56] LABS: Critical Call Chem Troponin I NUR.LK7 @0655; Troponin I 0.397 ng/mL (< 0.028)
[2023-03-11] MEDS ORDERED: Vancomycin (BATCH) 1.5 GM in Premix 1 BAG IVPB SCH (07:00)
[2023-03-11 09:27] LABS: Lactic Acid 2.7 mmol/L (0.5-2.2)
[2023-03-11 09:50] LABS: Critical Call Chem Troponin I NUR.LM21@0950; Troponin I 0.611 ng/mL (< 0.028)
[2023-03-11] MEDS ORDERED: Dextrose 50% Abboject 50 ML SYRINGE SLOW IVP PRN (10:10)
[2023-03-11] MEDS ORDERED: Dextrose 5% in Water 1,000 ML IV PRN (10:10)
[2023-03-11] MEDS ORDERED: Ondansetron PF 4 MG/2 ML Vial IVP PRN (10:10)
[2023-03-11] MEDS ORDERED: Glucagon 1 MG/ML KIT IM PRN (10:10)
[2023-03-11] MEDS ORDERED: Ipratropium Bromide 2.5 ml Neb ONE (10:24)
[2023-03-11] MEDS: Ipratropium Bromide 2.5 ml Neb NEB SCH ×4 (10:27→22:57)
[2023-03-11] MEDS: cefTRIAXone\\ROCEPHIN 1 GM in Sodium Chloride 0.9% 100 ML IVPB SCH (11:10)
[2023-03-11] MEDS ORDERED: Morphine 2 MG/ML VIAL ONE ×2 (12:24→16:10)
[2023-03-11] MEDS: Azithromycin 500 MG in Sodium Chloride 0.9% 250 ML 250 ML IVPB SCH (12:47)
[2023-03-11] MEDS ORDERED: cefTRIAXone (ROCEPHIN) 1 GM VIAL ONE (12:49)
[2023-03-11] MEDS ORDERED: Sodium Chloride 0.9% 100 ML ONE (12:50)
[2023-03-11] MEDS ORDERED: Azithromycin 500 MG VIAL ONE (12:50)
[2023-03-11] MEDS ORDERED: methylPREDNISolone Sod Succ 40 MG VIAL ONE ×2 (12:50→20:33)
[2023-03-11 13:29] LABS: Critical Call Chem Troponin I NUR.KR7@1329; Troponin I 0.785 ng/mL (< 0.028)
[2023-03-11] MEDS: methylPREDNISolone Sod Succ 40 MG VIAL IVP SCH ×2 (14:11→21:31)
[2023-03-11] MEDS: Morphine 2 MG/ML VIAL SLOW IVP PRN ×2 (16:07→23:38)
[2023-03-11] MEDS ORDERED: Gabapentin 100 MG CAP ONE (20:33)
[2023-03-11] MEDS ORDERED: Atorvastatin Calcium 40 MG TAB ONE (20:33)
[2023-03-11] MEDS: Atorvastatin Calcium 40 MG TAB PO SCH (20:36)
[2023-03-11] MEDS: Gabapentin 100 MG CAP PO SCH (20:36)
[2023-03-11 23:28] VITALS: BMI 34.1
[2023-03-12] MEDS: Ipratropium Bromide 2.5 ml Neb NEB SCH ×6 (02:54→22:29)
[2023-03-12 04:55] LABS: #Monocytes 0.7 thou/uL (0.11-0.59); #Neutrophils 15.7 thou/uL (1.40-6.50); %Basophils 0.1 % (0.0-1.0); %Lymphocytes 7.6 % (21.0-51.0); %Monocytes 3.7 % (0.0-10.0); Hematocrit 48.9 % (36.0-47.0); Hemoglobin 15.9 g/dL (12.0-16.0); Mean Corpuscular HGB CONC 32.5 g/dL (32.0-36.0); Mean Corpuscular Hemoglobin 30.9 pg (27.0-31.0); Mean Corpuscular Volume 95.1 fl (78.0-98.0); Platelet Count 239 10x3/uL (130-400); RBC Distribution Width 13.5 % (11.5-14.5); Red Blood Cell (RBC) Count 5.14 mill/uL (4.20-5.40); White Blood Cell (WBC) Count 17.9 10x3/uL (4.8-10.8)
[2023-03-12 05:15] LABS: Anion Gap 16 mmol/L (10-20); BUN (Urea Nitrogen) 22 mg/dL (9.8-20.1); Calc. Creatinine Clearance 110 mL/min (70-130); Calcium 8.9 mg/dL (7.8-10.44); Carbon Dioxide 20 mmol/L (23-31); Chloride 104 mmol/L (98-107); Estimated GFR 84; Glucose 165 mg/dL (80-115); Potassium 4.2 mmol/L (3.5-5.1); Sodium 136 mmol/L (136-145)
[2023-03-12] MEDS: methylPREDNISolone Sod Succ 40 MG VIAL IVP SCH ×3 (06:55→23:06)
[2023-03-12] MEDS: Enoxaparin 40 MG (0.4 mL) SYRINGE SC SCH (10:49)
[2023-03-12] MEDS: Amlodipine 10 MG TAB PO SCH (10:49)
[2023-03-12] MEDS: cefTRIAXone\\ROCEPHIN 1 GM in Sodium Chloride 0.9% 100 ML IVPB SCH (10:50)
[2023-03-12] MEDS: Azithromycin 500 MG in Sodium Chloride 0.9% 250 ML 250 ML IVPB SCH (11:01)
[2023-03-12] MEDS: Morphine 2 MG/ML VIAL SLOW IVP PRN ×2 (13:20→21:06)
[2023-03-12] MEDS: Acetaminophen 325 MG TAB PO PRN (16:18)
[2023-03-12] MEDS: Gabapentin 100 MG CAP PO SCH (21:08)
[2023-03-12] MEDS: Atorvastatin Calcium 40 MG TAB PO SCH (21:10)
[2023-03-13] MEDS: Ipratropium Bromide 2.5 ml Neb NEB SCH ×2 (02:35→07:30)
[2023-03-13] MEDS: Morphine 2 MG/ML VIAL SLOW IVP PRN ×4 (03:57→18:56)
[2023-03-13 04:33] LABS: #Monocytes 0.8 thou/uL (0.11-0.59); #Neutrophils 14.7 thou/uL (1.40-6.50); %Basophils 0.2 % (0.0-1.0); %Eosinophils 0.1 % (0.0-10.0); %Lymphocytes 8.2 % (21.0-51.0); %Monocytes 4.5 % (0.0-10.0); %Neutrophils 86.4 % (42.0-75.0); Hematocrit 47.1 % (36.0-47.0); Hemoglobin 15.6 g/dL (12.0-16.0); Mean Corpuscular HGB CONC 33.1 g/dL (32.0-36.0); Mean Corpuscular Hemoglobin 30.8 pg (27.0-31.0); Mean Corpuscular Volume 93.1 fl (78.0-98.0); Platelet Count 227 10x3/uL (130-400); Red Blood Cell (RBC) Count 5.06 mill/uL (4.20-5.40)
[2023-03-13 05:01] LABS: Anion Gap 15 mmol/L (10-20); BUN (Urea Nitrogen) 22 mg/dL (9.8-20.1); Calc. Creatinine Clearance 120 mL/min (70-130); Calcium 8.8 mg/dL (7.8-10.44); Carbon Dioxide 21 mmol/L (23-31); Chloride 100 mmol/L (98-107); Estimated GFR 92; Glucose 170 mg/dL (80-115); Potassium 4.3 mmol/L (3.5-5.1); Sodium 132 mmol/L (136-145)
[2023-03-13] MEDS: methylPREDNISolone Sod Succ 40 MG VIAL IVP SCH ×3 (05:43→21:22)
[2023-03-13] MEDS ORDERED: Ipratropium Bromide 2.5 ml Neb NEB PRN (08:53)
[2023-03-13] MEDS ORDERED: Lisinopril 20 MG TAB PO SCH (09:00)
[2023-03-13] MEDS: Enoxaparin 40 MG (0.4 mL) SYRINGE SC SCH (09:39)
[2023-03-13] MEDS: Metoprolol Tartrate 25 MG TAB PO SCH ×2 (09:39→21:22)
[2023-03-13] MEDS: Amlodipine 10 MG TAB PO SCH (09:39)
[2023-03-13] MEDS: cefTRIAXone\\ROCEPHIN 1 GM in Sodium Chloride 0.9% 100 ML IVPB SCH (10:49)
[2023-03-13] MEDS: Azithromycin 500 MG in Sodium Chloride 0.9% 250 ML 250 ML IVPB SCH (13:40)
[2023-03-13] MEDS ORDERED: CEFAZOLIN 2 GM in Sodium Chloride 0.9% 100 ML IVPB SCH (14:15)
[2023-03-13] MEDS: Gabapentin 100 MG CAP PO SCH (21:21)
[2023-03-13] MEDS: Acetaminophen 325 MG TAB PO PRN (21:22)
[2023-03-13] MEDS: Atorvastatin Calcium 40 MG TAB PO SCH (21:22)
[2023-03-14] MEDS: Morphine 2 MG/ML VIAL SLOW IVP PRN ×5 (02:40→22:21)
[2023-03-14 04:42] LABS: #Monocytes 0.6 thou/uL (0.11-0.59); #Neutrophils 11.1 thou/uL (1.40-6.50); %Basophils 0.1 % (0.0-1.0); %Lymphocytes 9.8 % (21.0-51.0); %Monocytes 4.3 % (0.0-10.0); %Neutrophils 85.2 % (42.0-75.0); Hematocrit 44.8 % (36.0-47.0); Mean Corpuscular HGB CONC 33.5 g/dL (32.0-36.0); Mean Corpuscular Hemoglobin 31.4 pg (27.0-31.0); Mean Corpuscular Volume 93.7 fl (78.0-98.0); Platelet Count 231 10x3/uL (130-400); RBC Distribution Width 12.7 % (11.5-14.5); Red Blood Cell (RBC) Count 4.78 mill/uL (4.20-5.40)
[2023-03-14 05:10] LABS: Phosphorus 2.9 mg/dL (2.3-4.7)
[2023-03-14 05:11] LABS: ALT (SGPT) 16 U/L (8-55); AST (SGOT) 13 U/L (5-34); Albumin 3.5 g/dL (3.4-4.8); Alkaline Phosphatase 64 U/L (40-110); Anion Gap 15 mmol/L (10-20); BUN (Urea Nitrogen) 26 mg/dL (9.8-20.1); Bilirubin, Total 0.5 mg/dL (0.2-1.2); Calc. Creatinine Clearance 118 mL/min (70-130); Calcium 8.7 mg/dL (7.8-10.44); Carbon Dioxide 23 mmol/L (23-31); Chloride 101 mmol/L (98-107); Estimated GFR 91; Globulin 2.8 g/dL (2.4-3.5); Glucose 189 mg/dL (80-115); Magnesium 2.2 mg/dL (1.6-2.6); Potassium 4.5 mmol/L (3.5-5.1); Protein, Total 6.3 g/dL (5.8-8.1); Sodium 134 mmol/L (136-145)
[2023-03-14] MEDS: methylPREDNISolone Sod Succ 40 MG VIAL IVP SCH ×3 (05:28→22:21)
[2023-03-14] MEDS: Amlodipine 10 MG TAB PO SCH (08:11)
[2023-03-14] MEDS: Lisinopril 20 MG TAB PO SCH (08:11)
[2023-03-14] MEDS: Metoprolol Tartrate 25 MG TAB PO SCH ×2 (08:12→20:08)
[2023-03-14] MEDS: Enoxaparin 40 MG (0.4 mL) SYRINGE SC SCH (08:12)
[2023-03-14] MEDS ORDERED: Fentanyl 250 MCG/5 ML VIAL ONE (09:37)
[2023-03-14] MEDS ORDERED: PROPOFOL 20 ML ONE (09:37)
[2023-03-14] MEDS ORDERED: SUGAMMADEX SODIUM 200 MG/2 ML VIAL ONE (09:37)
[2023-03-14] MEDS ORDERED: Ondansetron PF 4 MG/2 ML Vial ONE (09:38)
[2023-03-14] MEDS ORDERED: Dexamethasone 4 mg/ml Vial ONE (09:38)
[2023-03-14] MEDS ORDERED: Rocuronium Bromide 10 MG/ML (10ML VIAL) ONE (09:38)
[2023-03-14] MEDS ORDERED: Sodium Chloride 0.9% 100 ML ONE (09:43)
[2023-03-14] MEDS ORDERED: cefTRIAXone (ROCEPHIN) 1 GM VIAL ONE (09:43)
[2023-03-14] MEDS ORDERED: Lidocaine 1% PF 5 ML VIAL ONE (10:00)
[2023-03-14] MEDS ORDERED: Pharmacy TO RENALLY ADJUST ABX FS SCH (10:00)
[2023-03-14] MEDS ORDERED: Metoprolol Tartrate 5 MG (5 mL) VIAL ONE (10:00)
[2023-03-14] MEDS ORDERED: Promethazine HCl 25 MG/ML VIAL IM PRN (10:44)
[2023-03-14] MEDS ORDERED: Ondansetron HCl/PF 4 MG/2 ML Vial IVP PRN (10:44)
[2023-03-14] MEDS ORDERED: ePHEDrine Sulfate 50 MG/10 ML VIAL ONE (11:07)
[2023-03-14] MEDS: cefTRIAXone\\ROCEPHIN 1 GM in Sodium Chloride 0.9% 100 ML IVPB SCH (11:59)
[2023-03-14] MEDS ORDERED: fentaNYL 50 mcg/mL 1 mL Vial ONE (12:04)
[2023-03-14] MEDS: Azithromycin 500 MG in Sodium Chloride 0.9% 250 ML 250 ML IVPB SCH (14:05)
[2023-03-14] MEDS: Gabapentin 100 MG CAP PO SCH (20:08)
[2023-03-14] MEDS: Atorvastatin Calcium 40 MG TAB PO SCH (20:08)
[2023-03-14] MEDS: Acetaminophen 325 MG TAB PO PRN (20:08)
[2023-03-14] MEDS: Aspirin 81 mg Enteric Coated Tablet PO SCH (20:09)
[2023-03-15] MEDS: Insulin Regular 300 UNITS/3 ML VIAL SC PRN ×2 (00:06→06:46)
[2023-03-15] MEDS: Morphine 2 MG/ML VIAL SLOW IVP PRN ×5 (04:19→21:18)
[2023-03-15] MEDS: methylPREDNISolone Sod Succ 40 MG VIAL IVP SCH (05:29)
[2023-03-15 07:01] LABS: Anion Gap 15 mmol/L (10-20); BUN (Urea Nitrogen) 26 mg/dL (9.8-20.1); Calc. Creatinine Clearance 134 mL/min (70-130); Calcium 8.3 mg/dL (7.8-10.44); Carbon Dioxide 20 mmol/L (23-31); Chloride 103 mmol/L (98-107); Estimated GFR 99; Glucose 161 mg/dL (80-115); Potassium 5.4 mmol/L (3.5-5.1); Sodium 133 mmol/L (136-145)
[2023-03-15] MEDS: Enoxaparin 40 MG (0.4 mL) SYRINGE SC SCH (08:24)
[2023-03-15] MEDS: Amlodipine 10 MG TAB PO SCH (08:24)
[2023-03-15] MEDS: Aspirin 81 mg Enteric Coated Tablet PO SCH ×2 (08:24→21:11)
[2023-03-15] MEDS: Lisinopril 20 MG TAB PO SCH (08:24)
[2023-03-15] MEDS: Metoprolol Tartrate 25 MG TAB PO SCH ×2 (08:24→21:12)
[2023-03-15 11:04] LABS: #Monocytes 1.5 thou/uL (0.11-0.59); #Neutrophils 10.7 thou/uL (1.40-6.50); %Basophils 0.1 % (0.0-1.0); %Lymphocytes 10.2 % (21.0-51.0); %Monocytes 10.8 % (0.0-10.0); %Neutrophils 78.3 % (42.0-75.0); Hematocrit 37.4 % (36.0-47.0); Hemoglobin 12.8 g/dL (12.0-16.0); Mean Corpuscular HGB CONC 34.2 g/dL (32.0-36.0); Mean Corpuscular Hemoglobin 31.3 pg (27.0-31.0); Mean Corpuscular Volume 91.4 fl (78.0-98.0); Mean Platelet Volume 11.1 fL (7.4-10.4); Platelet Count 191 10x3/uL (130-400); RBC Distribution Width 12.6 % (11.5-14.5); Red Blood Cell (RBC) Count 4.09 mill/uL (4.20-5.40); White Blood Cell (WBC) Count 13.7 10x3/uL (4.8-10.8)
[2023-03-15] MEDS: cefTRIAXone\\ROCEPHIN 1 GM in Sodium Chloride 0.9% 100 ML IVPB SCH (11:08)
[2023-03-15] MEDS: Azithromycin 500 MG in Sodium Chloride 0.9% 250 ML 250 ML IVPB SCH (11:08)
[2023-03-15] MEDS: Atorvastatin Calcium 40 MG TAB PO SCH (21:11)
[2023-03-15] MEDS: Cefdinir 300 MG CAP PO SCH (21:12)
[2023-03-15] MEDS: Gabapentin 100 MG CAP PO SCH (21:12)
[2023-03-16] MEDS: Morphine 2 MG/ML VIAL SLOW IVP PRN ×3 (00:38→16:33)
[2023-03-16] MEDS ORDERED: Cyclobenzaprine 10 MG TAB PO SCH (02:30)
[2023-03-16] MEDS: Acetaminophen 325 MG TAB PO PRN (02:49)
[2023-03-16] MEDS: Aspirin 81 mg Enteric Coated Tablet PO SCH ×2 (08:14→20:22)
[2023-03-16] MEDS: Enoxaparin 40 MG (0.4 mL) SYRINGE SC SCH (08:14)
[2023-03-16] MEDS: Amlodipine 10 MG TAB PO SCH (08:15)
[2023-03-16] MEDS: Lisinopril 20 MG TAB PO SCH (08:15)
[2023-03-16] MEDS: Cefdinir 300 MG CAP PO SCH ×2 (08:15→20:22)
[2023-03-16] MEDS: predniSONE 20 MG TAB PO SCH (08:15)
[2023-03-16] MEDS: Metoprolol Tartrate 25 MG TAB PO SCH ×2 (08:15→20:23)
[2023-03-16] MEDS: Insulin Regular 300 UNITS/3 ML VIAL SC PRN ×2 (12:58→16:33)
[2023-03-16 16:35] LABS: #Monocytes 1.5 thou/uL (0.11-0.59); #Neutrophils 9.3 thou/uL (1.40-6.50); %Basophils 0.1 % (0.0-1.0); %Eosinophils 0.1 % (0.0-10.0); %Lymphocytes 18.7 % (21.0-51.0); %Monocytes 11.3 % (0.0-10.0); %Neutrophils 68.2 % (42.0-75.0); Hematocrit 32.2 % (36.0-47.0); Hemoglobin 10.9 g/dL (12.0-16.0); Mean Corpuscular HGB CONC 33.9 g/dL (32.0-36.0); Mean Corpuscular Hemoglobin 31.5 pg (27.0-31.0); Mean Corpuscular Volume 93.1 fl (78.0-98.0); Mean Platelet Volume 10.3 fL (7.4-10.4); Platelet Count 183 10x3/uL (130-400); RBC Distribution Width 12.4 % (11.5-14.5); Red Blood Cell (RBC) Count 3.46 mill/uL (4.20-5.40); White Blood Cell (WBC) Count 13.6 10x3/uL (4.8-10.8)
[2023-03-16 16:53] LABS: Anion Gap 15 mmol/L (10-20); BUN (Urea Nitrogen) 20 mg/dL (9.8-20.1); Calc. Creatinine Clearance 126 mL/min (70-130); Calcium 7.9 mg/dL (7.8-10.44); Carbon Dioxide 22 mmol/L (23-31); Chloride 104 mmol/L (98-107); Estimated GFR 97; Glucose 162 mg/dL (80-115); Potassium 4.2 mmol/L (3.5-5.1); Sodium 137 mmol/L (136-145)
[2023-03-16] MEDS: HYDROcodone/Acetaminophen 5/325 mg Tablet PO PRN ×2 (17:58→22:44)
[2023-03-16] MEDS: Gabapentin 100 MG CAP PO SCH (20:22)
[2023-03-16] MEDS: Atorvastatin Calcium 40 MG TAB PO SCH (20:23)
[2023-03-17] MEDS: HYDROcodone/Acetaminophen 5/325 mg Tablet PO PRN ×6 (02:14→21:56)
[2023-03-17] MEDS: Insulin Regular 300 UNITS/3 ML VIAL SC PRN ×3 (06:02→16:04)
[2023-03-17] MEDS: Amlodipine 10 MG TAB PO SCH (08:44)
[2023-03-17] MEDS: Cefdinir 300 MG CAP PO SCH ×2 (08:44→21:57)
[2023-03-17] MEDS: Enoxaparin 40 MG (0.4 mL) SYRINGE SC SCH (08:44)
[2023-03-17] MEDS: predniSONE 20 MG TAB PO SCH (08:44)
[2023-03-17] MEDS: Lisinopril 20 MG TAB PO SCH (08:45)
[2023-03-17] MEDS: Aspirin 81 mg Enteric Coated Tablet PO SCH ×2 (08:45→20:06)
[2023-03-17] MEDS: Metoprolol Tartrate 25 MG TAB PO SCH ×2 (08:45→21:57)
[2023-03-17] MEDS: Gabapentin 100 MG CAP PO SCH (20:05)
[2023-03-17] MEDS: Acetaminophen 325 MG TAB PO PRN (20:05)
[2023-03-17] MEDS: Atorvastatin Calcium 40 MG TAB PO SCH (20:06)
[2023-03-18] MEDS: HYDROcodone/Acetaminophen 5/325 mg Tablet PO PRN ×2 (02:08→06:28)
[2023-03-18 05:37] LABS: Hematocrit 29.5 % (36.0-47.0); Hemoglobin 9.9 g/dL (12.0-16.0); Mean Corpuscular HGB CONC 33.6 g/dL (32.0-36.0); Mean Corpuscular Hemoglobin 31.5 pg (27.0-31.0); Mean Corpuscular Volume 93.9 fl (78.0-98.0); Mean Platelet Volume 10.1 fL (7.4-10.4); Platelet Count 235 10x3/uL (130-400); RBC Distribution Width 12.7 % (11.5-14.5); Red Blood Cell (RBC) Count 3.14 mill/uL (4.20-5.40); White Blood Cell (WBC) Count 14.9 10x3/uL (4.8-10.8)
[2023-03-18 06:36] LABS: Anion Gap 11 mmol/L (10-20); BUN (Urea Nitrogen) 14 mg/dL (9.8-20.1); Calc. Creatinine Clearance 134 mL/min (70-130); Calcium 8.2 mg/dL (7.8-10.44); Carbon Dioxide 26 mmol/L (23-31); Chloride 101 mmol/L (98-107); Estimated GFR 99; Glucose 155 mg/dL (80-115); Sodium 134 mmol/L (136-145)
[2023-03-18] MEDS: Amlodipine 10 MG TAB PO SCH (09:18)
[2023-03-18] MEDS: Lisinopril 20 MG TAB PO SCH (09:18)
[2023-03-18] MEDS: predniSONE 20 MG TAB PO SCH (09:18)
[2023-03-18] MEDS: Aspirin 81 mg Enteric Coated Tablet PO SCH (09:19)
[2023-03-18] MEDS: Metoprolol Tartrate 25 MG TAB PO SCH (09:19)
[2023-03-18] MEDS: Acetaminophen 325 MG TAB PO PRN ×2 (09:19→14:15)
[2023-03-18] MEDS: Enoxaparin 40 MG (0.4 mL) SYRINGE SC SCH (09:19)
[2023-03-18] MEDS ORDERED: HYDROcodone/Acetaminophen 5/325 mg Tablet PO PRN (12:00)
[2023-03-18 12:34] VITALS: BP 134/75; TEMP 98.3
== END 2023-03-18 14:59 | DRG 521 ==
LOC: ERS 05:20 → ERHOLD 06:56 → 2NO 21:53 → SURG A 03-16 00:05
PROVIDERS: ADMIT Internal Medicine; ATTEND Internal Medicine
PROC: 0SRS0JZ Replacement of Left Hip Joint, Femoral Surface with Synthetic Substitute, Open Approach (ICD-10-PCS; principal; 2023-03-14)
DX: S72.001A Fracture of unspecified part of neck of right femur, initial encounter for closed fracture (principal); A41.9 Sepsis, unspecified organism; I21.A1 Myocardial infarction type 2; J96.01 Acute respiratory failure with hypoxia; R65.20 Severe sepsis without septic shock; I69.351 Hemiplegia and hemiparesis following cerebral infarction affecting right dominant side; J44.1 Chronic obstructive pulmonary disease with (acute) exacerbation; E66.9 Obesity, unspecified; E11.9 Type 2 diabetes mellitus without complications; E87.5 Hyperkalemia; E03.9 Hypothyroidism, unspecified; Z88.5 Allergy status to narcotic agent; Z79.82 Long term (current) use of aspirin; Z79.899 Other long term (current) drug therapy; Z79.84 Long term (current) use of oral hypoglycemic drugs; Z90.710 Acquired absence of both cervix and uterus; Z90.49 Acquired absence of other specified parts of digestive tract; Z98.890 Other specified postprocedural states
CPT/HCPCS: 36415; 36416; 80048; 80053; 82805; 83605; 83735; 83880; 84100; 85025; 85027; 93005; 93306; 94640; 94760; 96365; 96366; 96375; C1776; G0390; J0456; J0696; J1100; J1650; J1815; J2270; J2272; J2405; J2704; J2920; J3010; J3370; J3490; J7050; J7512; J7620